=== PATIENT | male | born 1940 | race Caucasian/White ===

== ENCOUNTER → 2017-06-27 | Outpatient (CLI) | payer MEDICARE ==
[~2017-06-27] MED LIST: B-100 COMPLEX1 EAC1; CARDIZEM CD180 MG PO; CELEBREX 200 M200 M1 PO; CELEBREX50 MG; CO Q10 PO; COLACE100 MG PO; ELIQUIS2.5 MG PO; ELIQUIS5 MG PO; EXCEDRIN CAPLE1 EACH PO; FEVERALL650 MG PO; FISH OIL; FISH OIL 1,0001 EAC5 PO; FISH OIL 1,001000 M2 PO; GARLIC200 MG PO; GARLIC500 MG PO; HYDROXYZINE HCL25 M1 PO; IRON PO; IRON325 PO; LISINOPRIL2.5 MG PO; LISINOPRIL20 MG PO; MAXZIDE-25 MG1 EACH PO; METAMUCIL PAC1 UDPKT PO; METAMUCIL1 EAC1 PO; MILK OF MA2400 MG/10 PO; MILK OF MA400 MG/5 M PO; MIRALAX17 GM PO; MULTIVITAMINS PO; MULTIVITAMINS1 EAC7; NATURAL LUTEIN20 MG PO; ONDANSETRON HCL4 M2 PO; OSTEO BI-FLEX1 EAC1 PO; OXYCODONE HCL 55 MG PO; PERCOCET PO; PHENERGAN 25 MG25 M1 PO; PUMPKIN SEED OIL PO; SAW PALMETTO450 MG PO; VITAMIN D-32000 UNI1 PO; VITAMIN D400 UNI1; VITAMIN E100 M1; VITAMIN E400 UNIT PO; ZESTORETIC 10-1 EACH PO; [UNRECOGNIZED DRUG - OTHER] PO
--- NOTE | 2017-08-06 11:53 | SLEEP ---
[address] [address] SLEEP STUDY REPORT Name: VILMA LEE Room: [facility]#: [id number] Admission: 06/27/17 Attend Phys: Yousif Siddiqui MD Discharge: Date of : 36 Report #: [id number] THIS REPORT FOR: //name// CC: Tami Siddiqui This study has been reviewed in its entirety by a board certified sleep specialist DATE OF SERVICE: 06/27/2017 HOME SLEEP STUDY INDICATION FOR SLEEP STUDY: Previous history of excessive daytime sleepiness as well as obstructive sleep apnea. The patient needs redocumentation of obstructive sleep apnea for insurance reasons and needs a new CPAP machine. INTERPRETATION: Total duration of the study is 410 minutes. During this time duration, we recorded 30 obstructive apneas in addition to 73 hypopneas. Overall, apnea-hypopnea index is 15.1. Body position data indicates the patient is lying supine throughout the sleep study and also multiple desaturations recorded. Overall, the patient spent 31.4 minutes below an O2 saturation of 88%. Mean heart rate is 53. IMPRESSION: Obstructive sleep apnea with nocturnal hypoxemia. See details above. RECOMMENDATIONS: Options include either the use of a CPAP auto titrated device or doing another sleep study in the sleep lab for evaluation on positive airway pressure. Considering presence of significant nocturnal hypoxemia as well, I would favor doing a repeat sleep study in the sleep lab for positive airway pressure titration. <ELECTRONICALLY SIGNED> By: Neto Anaya MD 08/06/17 1153 1505 [id number] Reyes MD /nt
== END ==
LOC: M.SLEEPLAB 09:00
DX: G47.33 Obstructive sleep apnea (adult) (pediatric) (principal); I48.91 Unspecified atrial fibrillation; I12.9 Hypertensive chronic kidney disease with stage 1 through stage 4 chronic kidney disease, or unspecified chronic kidney disease; N18.3 Chronic kidney disease, stage 3 (moderate); E66.9 Obesity, unspecified; E78.5 Hyperlipidemia, unspecified; I71.4 Abdominal aortic aneurysm, without rupture; Z90.49 Acquired absence of other specified parts of digestive tract

== ENCOUNTER → 2018-03-11 | Outpatient (CLI) | payer MEDICARE ==
--- NOTE | 2018-04-09 16:08 | PAINCON ---
[address] [address] PAIN MANAGEMENT CONSULTATION Name: ROSAVILMA Tony Room: [facility]#: [id number] Admission: 03/11/18 Attend Phys: Washington Guthrie MD Discharge: Date of : 38 Report #: [id number] THIS REPORT FOR: //name// CC: Tami Guthrie DATE OF SERVICE: 03/11/2018 CHIEF COMPLAINT: Low back pain. HISTORY OF PRESENT ILLNESS: The patient is a 77-year-old gentleman who has been referred to the Pain Clinic for evaluation. The patient states that he is experiencing some pain in his lower back as well as some pain in his neck and shoulders. 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 Certain of these activities exacerbate his pain and discomfort. Pain is worse when he is with prolonged standing as well as somewhat limited with walking. Notes that the pain is better when he is sitting or lying down. He had a CT, which showed some narrowing in his midback area. States that if he stands for a prolonged period of time, he notes pain and discomfort across the back. He and his recount that when they go shopping, the patient generally holds on to the shopping cart. Leaning forward while shopping decrease his pain and discomfort. Standing erect exacerbates the pain. He has not had back surgery. He has also noticed some pain and discomfort in his arms bilaterally. Notes that this can occur at times. It mostly occurs at night. Also, has had knee surgery in 2015. Since that time, he has continued to have some back discomfort. Attributes that to the perception of some unevenness in his leg lengths. He has tried Celebrex and Excedrin Extra Strength. Rates his pain as a 4-5 while walking. Denies any injury to his back. ALLERGIES: No known drug allergies. MEDICATIONS: Excedrin caplets 1 q. 6 hours p.r.n., Celebrex 200 mg daily, vitamin D3 2000 units tablet supplement, diltiazem 180 mg for the heart rhythm, fish oil 1000 mg, garlic supplement 500 mg, Osteo Bi-Flex caplets b.i.d., Zestril 20 mg, Lutein 20 mg capsule, saw palmetto 450 mg t.i.d., Maxzide 25 mg daily, vitamin E 400 units daily, CoQ10 250 mg, pumpkin seed oil 1000 mg. PAST MEDICAL HISTORY: 1. Atrial fibrillation. 2. Hypertension. 3. Degenerative joint disease. 4. History of bilateral carpal tunnel. 5. History of polyposis. PAST SURGICAL HISTORY: Colon resection, right side; knee replacement, [place] [address] PAIN MANAGEMENT CONSULTATION Name: VILMA LEE Room: [facility]#: [id number] Admission: 03/11/18 Attend Phys: Washington Guthrie MD Discharge: Date of : 38 Report #: [id number] bilateral; carpal tunnel repair, bilateral. 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 LABORATORY DATA: CT of the lumbar spine dated 07/20/2016: 1. L3-L4 disk desiccation and broad-based circumferential disk bulge. Moderate facet arthrosis. Mild central canal stenosis measuring 10 mm anterior, posterior. A 5 mm ligamentum flavum hypertrophy. When combined, there is a moderate foraminal narrowing bilaterally with effacement of the L4, L3 nerve roots. L2-L3 disk desiccation and disk space narrowing. Moderate facet arthrosis. Circumferential osteophyte disk complex. Mild central canal effacement without stenosis measuring 13 mm anterior posteriorly. Mild foraminal narrowing bilaterally with effacement of the exiting L2 nerve. 2. L4-L5 disk desiccation and broad-based circumferential disk bulge at the disk bulge. A 5 mm ligamentum flavum hypertrophy and moderate facet arthrosis. Mild central canal stenosis measuring 12 mm anterior posteriorly. There is effacement of the lateral recess bilaterally. Mild/moderate foraminal narrowing bilaterally with effacement of the L4 nerve. 3. L5-S1 disk desiccation and broad-based circumferential disk bulge. Mild central canal effacement without stenosis measuring 14 mm anterior posteriorly. 4. Sensory nerve conduction/ motor conduction studies dated 07/11/2016: Study demonstrates borderline findings for neuropathy involving the left lower extremity. Findings suggestive of chronic L5-S1 radiculopathy is also present on the left side. PAIN CLINIC ASSESMENT: 1. History of osteoarthritis. The patient has had osteoarthritic changes involving his knees and has had knee replacements as well as bilateral carpal tunnel surgeries. 2. History of rheumatoid arthritis. The patient is not being treated for rheumatoid arthritis. 3. Height 6 feet 2 inches, weight 252 pounds, BMI is 31. 4. Vital signs: Blood pressure 125/92, heart rate 71, respiratory rate 16, room air saturation 94%, temperature 98.2. 5. Pain intensity 4-5 while walking. 6. Fall risk. The patient has not fallen in the last 3 months. 7. Blood thinner. The patient is not on a blood thinning medication. States that he was on a blood thinning medication in the past when he was found to [place] [address] PAIN MANAGEMENT CONSULTATION Name: VILMA LEE Room: [facility]#: [id number] Admission: 03/11/18 Attend Phys: Washington Guthrie MD Discharge: Date of : 38 Report #: [id number] 8. Hypertension. The patient is being treated for hypertension. 9. Opioid therapy greater than 6 weeks. The patient is not on opioid medication. 10. Risk assessment tool, low for opioid use. 11. Functional assessment tool. 12. Recreational drug use. The patient denies use of recreational drugs. 13. Tobacco: The patient denies smoking. 14. Alcohol: The patient denies frequent use of alcoholic beverages. PHYSICAL EXAMINATION: GENERAL: The patient is a well-developed, well-nourished 77-year-old white male, appears his stated age. He is alert and oriented x 3. Affect is appropriate. Speech is fluent. His is present. HEENT: Normocephalic, atraumatic. Extraocular eye muscles intact. Sclerae nonicteric. Mucous membranes are moist. NECK: Without JVD or bruits. CHEST: Clear to auscultation. HEART: Regular rate. S1, S2. LUNGS: Clear to auscultation without rales or rhonchi. Upper extremity muscle strength is judged to be 5/5 for the major muscle groups in the upper extremity. Pipe Fitter Ammonia strength 5/5. The patient complains of some numbness in his arms sometimes at night. No complaint of sensory changes at this time of our evaluation. ABDOMEN: Nontender. Bowel sounds present, slightly protuberant. EXTREMITIES: Lower extremity muscle strength is judged to be 5-/5. The patient uses his arms to go from a sitting to a standing position. Note some increased pain and discomfort when he is standing erect. Forward bending has less discomfort. The patient is able to walk forward on his toes as well as on his heels. Deep tendon reflexes are absent at the knees and ankles. Left and right lateral rotation cause some degree of discomfort in his low back area. Lumbar extension was particularly problematic and increased back pain. The patient has a perception that his leg lengths are different. States that when he is standing erect, more pressure is on the left knee. Feels that this changes his gait, somewhat. IMPRESSION: 1. Low back pain, which is primarily in the mid back area -- history of spinal stenosis. 2. Degenerative joint disease involving the knees. 3. History of atrial fibrillation. 4. Hypertension. RECOMMENDATIONS: We discussed treatment options with the patient. The patient is having pain and discomfort in the low back area. Gives a clinical history consistent with spinal stenosis. The patient notes increased pain and discomfort when he is standing erect. He has difficulty when [place] [address] PAIN MANAGEMENT CONSULTATION Name: ROSAVILMA Tony Room: [facility]#: [id number] Admission: 03/11/18 Attend Phys: Washington Guthrie MD Discharge: Date of : 38 Report #: [id number] Finds that if he leans forward on the cart, thinks he is able to do reasonably well. Once stopped pain and standing erect notices after a few minutes, pain and discomfort, which becomes more problematic. It improves after the patient sits down. He had a CT, which showed some spinal stenosis in the lower back. The patient and were educated regarding spinal stenosis. A model was used to indicate the area of probable pathology. Also, the patient was provided information in a video regarding low back pain and spinal stenosis. He will return to the Pain Clinic, at which time we will consider an epidural steroid injection in the L3-L4 area. This is an area that has shown to be causing some spinal stenosis symptoms. Risks and benefits of an epidural steroid injection were discussed. After the patient returns, we will then further explore/discussed expectations regarding the injection and possible complications of the procedure. We would like to thank you for letting us participate in his care. We hope he continues to improve. <ELECTRONICALLY SIGNED> By: Washington Guthrie MD 04/09/18 1608 [id number]. Conrado Guthrie MD /nt
== END ==
LOC: M.PC 05:18
DX: M54.5 Low back pain (principal); I10 Essential (primary) hypertension; M17.0 Bilateral primary osteoarthritis of knee; Z86.79 Personal history of other diseases of the circulatory system

== ENCOUNTER → 2018-04-03 | Outpatient (CLI) | payer MEDICARE ==
--- NOTE | ~2018-04-03 | PAINCON ---
[address] [address] PAIN MANAGEMENT CONSULTATION Name: ROSAVILMA R [id number] Admission: 04/03/18 Attend Phys: Washington Guthrie MD Discharge: Date of : 38 Report #: [id number] THIS REPORT FOR: //name// CC: Tami Guthrie DATE OF SERVICE: 04/15/2018 FOLLOWUP: Low back pain with pain in the neck and shoulders, cramping, aching pain in the left hip with numbness and tingling. HISTORY OF PRESENT ILLNESS: The patient is a 77-year-old gentleman who has been seen in the pain clinic. States that he has been experiencing pain in his low back as well as pain in his neck and shoulders. He has returned today. Continues to have pain and discomfort, which is quite problematic. It is radiating down the lower portion of his back into his anterior thigh area. Has noted some numbness and tingling. Notes that the pain can be problematic with prolonged standing and this limits his walking. Notes that the pain becomes more problematic across his back after prolonged standing. Oftentimes when he and his go shopping, he sits and waits for her. He has not had back surgery. He has returned today with pain and discomfort and seeks to undergo an epidural steroid injection to help control the pain in his back and anterior portion of his thigh. ALLERGIES: No known drug allergies. MEDICATIONS: Excedrin caplets 1 q. 6 hours p.r.n., Celebrex 200 mg, vitamin D3 2000 units, diltiazem 180 mg for heart rhythm, fish oil 1000 mg, garlic supplement 500 mg, Osteo Bi-Flex capsules b.i.d., Zestril 20 mg, Lutein 20 mg capsules, saw palmetto 450 mg t.i.d., Maxzide 25 mg daily, vitamin E 400 units daily, CoQ10 250 mg, pumpkin seed oil 1000 mg. PAIN CLINIC ASSESSMENT/PQRS: 1. History of osteoarthritis. The patient has had osteoarthritic changes involving his knee and has had knee replacements as well as bilateral carpal tunnel surgeries. 2. The patient is not being treated for rheumatoid arthritis. 3. Height 6 feet 3 inches, weight 248 pounds, BMI is 94. 4. Vital signs: Blood pressure 108/59, heart rate 65, respiratory rate 18, room air saturation 94%, temperature 98. 4. Pain intensity 3/10. 5. Fall History: The patient has not fallen in the last 3 months. 6. Blood thinner. The patient is not on a blood thinning medication. The patient was treated with anticoagulant when he was in atrial fibrillation. 7. Hypertension. He has been treated for hypertension. 8. Opiate therapy greater than 6 weeks. The [place] [address] PAIN MANAGEMENT CONSULTATION Name: VILMA LEE Room: [facility]#: [id number] Admission: 04/03/18 Attend Phys: Washington Guthrie MD Discharge: Date of : 38 Report #: [id number] medication. 9. Risk assessment tool for opioid use. 10. Functional assessment tool. 11. Recreational drug use. The patient denies use of recreational drugs. 12. Tobacco: The patient denies use of smoking. 13. Alcohol: The patient denies frequent use of alcoholic beverages. PHYSICAL EXAMINATION: GENERAL: The patient is a well-developed, well-nourished 77-year-old male. Appears his stated age. He is alert and oriented x 3. His affect is appropriate. Speech is fluent. His is present. HEENT: Normocephalic, atraumatic. Extraocular eye muscles intact. Sclerae nonicteric. Mucous membranes are moist. NECK: Without adenopathy or JVD. CHEST: Clear to auscultation. HEART: Regular rate. LUNGS: Clear, without rhonchi or rales. EXTREMITIES: Upper extremity muscle strength is judged to be 5/5 for the major muscle groups in the upper extremity. Land Examiner strength 5/5. The patient has some numbness in his arms which he perceives at night. No complaints of sensory changes at this juncture. ABDOMEN: Nontender. Bowel sounds present, slightly protuberant. The patient complains of pain and discomfort, which is radiating down into the L3-L4 distribution in his legs. IMPRESSION: 1. Low back pain with pain radiating down into the L3-L4 lumbar disk fusion with history of spinal stenosis. 2. Degenerative joint disease involving the knees. 3. Atrial fibrillation. 4. Hypertension. The patient has evidence of spinal stenosis at the L3-L4 level. He has returned to the pain clinic and will undergo an epidural steroid injection. Because of the spinal stenosis, the patient has elected to proceed. Risks and benefits of the procedure, which could include but are not limited to infection, increased muscle soreness, headache, bleeding, worsening of pain, no improvement in pain, paralysis. The patient elects to proceed. PROCEDURE NOTE: The patient was taken to the procedure area. He was assisted in getting on the examination table. He was placed in the prone position. His back was sterilely prepped with a Betadine solution. A pillow was placed under his abdomen to bolster improved positioning. Fluoroscopy using anterior, posterior as well as lateral viewing were implemented. His back at the L3-L4 interspace was sterilely prepped with a Betadine solution. A 25-gauge needle was then injected into this area and 0.25% bupivacaine was infiltrated. A 17-gauge Tuohy with loss of resistance technique was then used to gain access to the epidural space at L3-L4. A total of 80 mg Depo-Medrol, 40 [place] [address] PAIN MANAGEMENT CONSULTATION Name: VILMA LEE Room: [facility]#: [id number] Admission: 04/03/18 Attend Phys: Washington Guthrie MD Discharge: Date of : 38 Report #: [id number] and 2 mL of 0.25% bupivacaine was injected. The patient tolerated the procedure well. There were no complications. He remained in the pain clinic for an appropriate amount of time. He will follow up in the future as needed. We would like to thank you for letting us participate in his care. We hope he continues to improve. By: [id number]. Conrado Guthrie MD /antony
== END | disposition home or self-care (01) ==
LOC: M.PC 05:10
DX: M48.061 Spinal stenosis, lumbar region without neurogenic claudication (principal); M54.16 Radiculopathy, lumbar region; M17.0 Bilateral primary osteoarthritis of knee; I10 Essential (primary) hypertension; I48.91 Unspecified atrial fibrillation; Z79.899 Other long term (current) drug therapy; Z79.01 Long term (current) use of anticoagulants; Z98.890 Other specified postprocedural states; Z96.653 Presence of artificial knee joint, bilateral

== ENCOUNTER → 2018-05-01 | Outpatient (CLI) | payer MEDICARE ==
--- NOTE | 2018-05-02 17:20 | PAINCON ---
[address] [address] PAIN MANAGEMENT CONSULTATION Name: ROSAVILMA Tony Room: [facility].#: [id number] Admission: 05/01/18 Attend Phys: Washington Guthrie MD Discharge: Date of : 38 Report #: [id number] THIS REPORT FOR: //name// CC: Tami Guthrie DATE OF SERVICE: 05/01/2018 FOLLOWUP COMPLAINT: I think I have got some benefit from, the pain is still there when I stand for a long time. FOLLOWUP HISTORY: The patient is a 77-year-old gentleman who has been seen in the pain clinic because of pain associated with spinal stenosis. The patient underwent an epidural steroid injection at the last visit and noted some improvement in his pain. Overall, it still continues to be problematic and limits his ability to engage in activities. He would like to proceed. 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 States that when he is out working, when he stands up erect notes significant increase in pain and discomfort. If he sits or bends over, pain improves. He has noted worsening of pain when he is walking. When he goes to the store, he leans forward on the cart with his . Had no problems with the epidural steroid injection at the last visit. Continues to find that Excedrin and Celebrex can be helpful. He has had no problems with the GI upset associated with this. 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 Bending over caused some worsening of pain and the pain is in the middle portion of his back and radiates down to the area of the buttocks. Notes some discomfort in his neck and shoulder area as well. ALLERGIES: No known drug allergies. MEDICATIONS: Excedrin caplets 1 q.6 hours, Celebrex 200 mg, vitamin D3 2000 units, diltiazem 180 mg for heart rhythm, fish oil 1000 mg, garlic supplement 500 mg, Osteo Bi-Flex capsules b.i.d., Zestril 20 mg, lutein 20 mg capsules, Saw [place] 400 mg t.i.d., Maxzide 25 mg, vitamin E 400 mg, CoQ10 250 mg, and pumpkin seed oil 1000 mg. PAIN CLINIC ASSESSMENT/ PQRS: 1. History of osteoarthritis. The patient has some osteoarthritic changes involving his knee and has had a knee replacement as well as bilateral carpal tunnel surgeries. 2. The patient is not being treated for rheumatoid arthritis. 3. Height 6 feet 3 inches, weight is 245 pounds, BMI is 30. 4. Vital signs: Blood pressure 120/56, heart rate 64, respiratory rate 18, room air saturation 95%, temperature 97.9. 5. Pain intensity 3/10. [place] [address] PAIN MANAGEMENT CONSULTATION Name: VILMA LEE Room: [facility]#: [id number] Admission: 05/01/18 Attend Phys: Washington Guthrie MD Discharge: Date of : 38 Report #: [id number] 6. Fall risk. The patient has not fallen in the last 3 months. 7. Blood thinner. The patient is not on a blood thinning medication. 8. Hypertension. The patient is being treated for hypertension. 9. Opioid greater than 6 weeks. The patient is not on an opioid regimen. 10. Risk assessment tool, low for opioid use. 11. Functional assessment tool. 12. Recreational drug use. The patient denies use of recreational drugs. 13. Tobacco: The patient denies use of tobacco. 14. Alcohol: The patient denies use of alcoholic beverages. PHYSICAL EXAMINATION: GENERAL: The patient is a well-developed, well-nourished white male. He appears his stated age of [age] years old. He is alert and oriented x 3. Affect is appropriate. Speech is fluent. He is alone. HEENT: Normocephalic, atraumatic. Extraocular, eye muscles intact. Sclerae nonicteric. Mucous membranes are moist. NECK: Without adenopathy or JVD. CHEST: Clear to auscultation. HEART: Regular rate. LUNGS: Without rhonchi or rales. EXTREMITIES: Upper extremity muscle strength is judged to be 5-/5 for the major muscle groups in the upper extremity. Warp Changer strength is 5. The patient has some numbness in his arms, which is more problematic at night. ABDOMEN: Nontender. Bowel sounds present, slightly protuberant. The patient has pain and discomfort in the lower portion of his back, which increases when he stands erect. Radiates down into the buttocks area and radiate into the area of the L3-L4 interspace. IMPRESSION: 1. Low back pain with radiation down into the L4-L5 distribution. 2. History of spinal stenosis. 3. Degenerative joint disease involving the knees. 4. Atrial fibrillation. 5. Hypertension. 6. Evidence of spinal stenosis at L3-L4. RECOMMENDATIONS: We discussed treatment options with the patient. Risks and benefits of an epidural steroid injection were discussed. They include but are not limited to infection, increased muscle soreness, headache, bleeding, worsening of pain, no improvement in pain, and the patient elects to proceed. PROCEDURE NOTE: The patient was assisted in getting on the examination table. His back was sterilely prepped with a Betadine solution. Fluoroscopy using anterior, posterior as well as lateral viewing were implemented. Pillow had been placed under his abdomen to improve and bolster for better positioning. The patient's back was sterilely prepped with a Betadine solution. A 0.25% [place] [address] PAIN MANAGEMENT CONSULTATION Name: ROSAVILMA R Room: [facility]#: [id number] Admission: 05/01/18 Attend Phys: Washington Guthrie MD Discharge: Date of : 38 Report #: [id number] bupivacaine was infiltrated at the L4-L5 interspace. A 17-gauge Tuohy with loss of resistance technique was used to gain access to the epidural space. A midline approach was used, a 17-gauge Tuohy was then moved into the epidural space. After appropriate placement, aspiration was negative. A total of 40 mg triamcinolone, 80 mg Depo-Medrol, and 2 mL of 0.25% bupivacaine was infiltrated. A total of 14 seconds fluoroscopy time was used. The patient remained in the pain clinic for an appropriate amount of time. He will follow up in the future as needed. We would like to thank you for letting us participate in his care. We hope he continues to improve. <ELECTRONICALLY SIGNED> By: Washington Guthrie MD 05/02/18 1720 [id number]. MD YULIA Lyon
== END | disposition home or self-care (01) ==
LOC: M.PC 04-24 12:40
DX: M54.16 Radiculopathy, lumbar region (principal); M48.061 Spinal stenosis, lumbar region without neurogenic claudication; G89.29 Other chronic pain; M17.0 Bilateral primary osteoarthritis of knee; I10 Essential (primary) hypertension; I48.91 Unspecified atrial fibrillation; Z79.01 Long term (current) use of anticoagulants; Z79.899 Other long term (current) drug therapy; Z98.890 Other specified postprocedural states

== ENCOUNTER 2018-05-31 09:56 | Inpatient (IN) | payer MEDICARE ==
[~2018-05-31] VITALS: Ht 190.5 cm; Wt 109.3 kg
--- NOTE | ~2018-05-31 | EKG ---
[place] [address] ELECTROCARDIOGRAM REPORT Name: VILMA LEE Room: [address] ADM IN M.R.#: [id number] Admission: 05/31/18 Attend Phys: Laura Morrow MD Discharge: Date of : 36 Report #: [id number] THIS REPORT FOR: //name// [facility] Test Date: 2018-06-02 Test Time: 05:48:04 Pat Name: VILMA LEE Department: Room: [address] Gender: M Esl Instructor: [facility] : 1940 Requested By: Norman Ortiz Order Number: [id number] Reading MD: Measurements Intervals [place] Rate: 109 P: 108 [place]: 128 QRS: -19 QRSD: 90 T: 127 QT: 321 QTc: 433 Interpretive Statements Sinus tachycardia Ventricular premature complex Borderline left axis deviation Anterior infarct, old Nonspecific T abnormalities, lateral leads Baseline wander in lead(s) V3 Compared to ECG 06/01/2018 08:55:08 Atrial flutter no longer present Possible ischemia no longer present Myocardial infarct finding still present T-wave abnormality still present [email or web address] By: 0548 0548 Epiphany Epiphany, /BAKARI
--- NOTE | ~2018-05-31 | EKG ---
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: [facility] : 1940 Requested By: Norman Ortiz Order Number: [id number] Reading MD: Measurements Intervals [place] Rate: 109 P: 108 [place]: 128 QRS: -19 QRSD: 90 T: 127 QT: 321 QTc: 433 Interpretive Statements Sinus tachycardia Ventricular premature complex Borderline left axis deviation Anterior infarct, old Nonspecific T abnormalities, lateral leads Baseline wander in lead(s) V3 Compared to ECG 06/01/2018 08:55:08 Atrial flutter no longer present Possible ischemia no longer present Myocardial infarct finding still present T-wave abnormality still present [email or web address] By: 0548 0548 Epiphany Epiphany, /BAKARI
[2018-05-31 10:00] VITALS: BP 133/79
[2018-05-31] MEDS ORDERED: CARTIA XT180 M1 PO (10:07)
[2018-05-31 10:17] LABS: ABSOLUTE EOSINOPHILS 0.3 thou/uL (0.0-0.7); ABSOLUTE MONOCYTES 0.8 thou/uL (0.0-1.2); BASOPHILS 0.4 %; EOSINOPHILS 2.6 %; HEMATOCRIT 36.7 % (42.0-52.0); HEMOGLOBIN 12.4 gm/dL (14.0-18.0); MCH 31.4 pg (26.0-34.0); MCHC 33.7 g/dL (28.0-37.0); MONOCYTES 6.9 %; MPV 7.5 fl. (7.2-11.1); NUCLEATED RBCS 0 /100WBC; PLATELET COUNT* 268 thou/uL (150-400); POLYS 41.1 %; RBC 3.95 mil/uL (4.50-6.00); RDW-CV 13.3 % (10.5-14.5); WBC 12.2 thou/uL (4.0-11.0)
[2018-05-31 10:27] LABS: APTT 28.2 Seconds (25.0-31.3); CALCIUM 8.9 mg/dL (8.5-10.1); CREATININE 1.5 mg/dL (0.6-1.3); POTASSIUM 3.8 mmol/L (3.5-5.1); PROTIME 9.8 Seconds (9.20-11.50)
[2018-05-31 10:38] LABS: ALBUMIN 3.3 g/dL (3.4-5.0); MAGNESIUM 2.2 mg/dL (1.8-2.4); TOTAL BILIRUBIN 0.4 mg/dL (<0.1-1.0); TOTAL PROTEIN 6.7 g/dL (6.4-8.2); TROPONIN-I LEVEL 0.11 ng/mL (<0.06)
[2018-05-31 14:53] VITALS: BP 120/74
--- NOTE | 2018-05-31 15:37 | NUR ---
pt to room, from ER, appears alert o x 4, denies chest pain, SOB, pain or discmfort, A-FIB on minitor rate 80s-110s, on cardizem gtt mg per hour
[2018-05-31 16:00] VITALS: BP 109/65
--- NOTE | 2018-05-31 17:25 | NUR ---
PT RESTING IN BED, WITHOUT C/O , REMAINS ALERT O X 4, DENIES CHEST PAIN, SOB, C/O CHRONIC BACK PAIN, HX OF SPINAL STENOSIS, IS FOLLOWED BY PAIN CLINIC OUTPATIENT, A-FIB ON MONITOR , RATE 80S-110S, CARDIZEM GTT HAS BEEN D/C , SWITCHED TO PO CARDIZEM, SOLTALOL HAS BEEN ADDED, PIV R AC
--- NOTE | 2018-05-31 19:00 | NUR ---
cardizem gtt was d/dc earlier. sotalol was gievn as ordered. Held po ditiazem precuationary to see how tolerated soltalol. at aprox 1815, HR mid 50s , a-fib. bp 95/55, cardizem po held
--- NOTE | 2018-05-31 19:02 | NUR ---
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 responed to room. pt states had felt light headed earlier, just prior to coming in roon. HR remain low 50s , pt place din supine postion, states lightheaded resolved . bp 90s/50s
[2018-05-31 19:50] VITALS: BP 95/46
[2018-05-31 23:33] VITALS: BP 93/59
[2018-06-01] VITALS (7 sets, daily range): BP systolic 90–107; BP diastolic 47–74
--- NOTE | 2018-06-01 07:05 | NUR ---
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 BP 90s-100s/50s-60s. Up to BR ad elham. Reports he got some sleep overnight. Will continue to monitor.
[2018-06-01 07:53] LABS: CHOLESTEROL 198 mg/dL (<200); HDL CHOLESTEROL 43 mg/dL (>40); LDL CHOLESTEROL 127 mg/dL (<100); TC:HDL 4.6 Ratio (Not establshd); TRIGLYCERIDE 142 mg/dL (<150); VLDL 28 mg/dL (<40)
[2018-06-01 07:54] LABS: SERUM ASSESSMENT Clear
--- NOTE | 2018-06-01 08:33 | NUR ---
PT RESTING IN BED, APPEARS ALERT O X 4, DENIES CHEST PAIN, SOB, PAIN OR DISCOMFORT, DR ROME HERE TO SEE, PLAN ON CARDIOVERSION IN AM
--- NOTE | 2018-06-01 10:03 | EKG ---
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 Operator: [place] : 1940 Requested By: Jim Collins Order Number: [id number] MD: Norman Ortiz Measurements Intervals [place] Rate: 126 P: [place]: QRS: -38 QRSD: 88 T: 131 QT: 299 QTc: 433 Interpretive Statements Atrial flutter with varied AV block, Left axis deviation Anterior infarct, old Repol abnrm suggests ischemia, lateral leads Compared to ECG 06/09/2013 22:26:07 Sinus rhythm no longer present Left ventricular hypertrophy no longer present Myocardial infarct finding still present Electronically Signed On 06-01-2018 10:03:12 ANIMAL MAINTENANCE SUPERVISOR by Norman Ortiz [email or web address] <ELECTRONICALLY SIGNED> By: Norman Ortiz MD, FAC 06/01/18 1003 1003 1003 Norman Ortiz MD, FAC /EPI
--- NOTE | 2018-06-01 10:20 | EKG ---
[place] [address] ELECTROCARDIOGRAM REPORT Name: VILMA LEE Room: [address] ADM IN .R.#: [id number] Admission: 05/31/18 Attend Phys: Laura Morrow MD Discharge: Date of : 38 Report #: [id number] THIS REPORT FOR: //name// 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 Safety Manager: : 1940 Requested By: Norman Ortiz Order Number: [id number] Jemma MD: Norman Ortiz Measurements Intervals [place] Rate: 110 P: 177 [place]: 138 QRS: -24 QRSD: 91 T: 129 QT: 335 QTc: 454 Interpretive Statements atrial flutter Ventricular premature complex Borderline left axis deviation Anterior infarct, old Abnormal T, consider ischemia, lateral leads Electronically Signed On 06-01-2018 10:20:08 SEASONAL DELIVERY DRIVER by Norman Ortiz [email or web address] <ELECTRONICALLY SIGNED> By: Norman Ortiz MD, [facility] 06/01/18 1020 Norman Ortiz MD, FAC /EPI
--- NOTE | 2018-06-01 19:00 | NUR ---
PT RESTING IN BED , REMAIS ALERT O X 4, DENIES CHEST PAIN, SOB, PAIN OR DISCOMFORT. CONT IN A-FIB ON MONOTOR M, CURRENT RATE 80WS-100S, GIVEN SOTALOL THIS AM, PT HAD RANJIT RYHTHM LOW 50S MOST OF AM. HAS SCHEDULED CARDIZED Q 8, 1400 DOSE WAS HELD SECONARY TO LOW BP, AND BRADYCARDIA, PER CARDIOLOGY PARAMETES. PT IS TO BE NPO AT MIDNIGHT FOR MACARIO WITH CARDIOVERSION IN AM, CONSENT SIGNED AND IN CHART
[2018-06-02] VITALS (19 sets, daily range): BP systolic 92–126; BP diastolic 47–92
--- NOTE | 2018-06-02 04:53 | NUR ---
ASSUMED PT CARE AT 1930. NURSING ASSESSMENT COMPLETED AT START OF SHIFT. PT VOICED NO CONCERNS. DILTIAZEM HELD THIS SHIFT PER PARAMETERS. SEE EMAR FOR DOCUMENTATION. PT TOLERATED SOTALOL DOSE. CONTINUES TO TRACE AFIB WITH OCCASIONAL PVCS. PT NPO AFTER MIDNIGHT FOR CARDIOVERSION. HOURLY ROUNDING COMPLETED. CALL LIGHT WITHIN REACH.
[2018-06-02 06:18] LABS: CALCIUM 8.5 mg/dL (8.5-10.1); CREATININE 1.7 mg/dL (0.6-1.3); POTASSIUM 4.3 mmol/L (3.5-5.1)
--- NOTE | 2018-06-02 12:00 | NUR ---
ASSUMED PT CARE AT 0730 REPORT RECEIVED FROM NURSE. PT IS AOX4 STACHY ON THE AGRONOMY MANAGER. HR IN THE 110S. VSS. PT IS MAINTAINED ON NPO STATUS FOR MACARIO AND POSSIBLE CARDIOVERSION TODAT. TEST SCHEDULED TO BE DONE AT 1200. PT AWAITNG FOR SUBJECT SCIENTIFIC RESEARCH IN BED. WILL CONTINUE TO MONITOR.
--- NOTE | 2018-06-02 14:35 | NUR ---
PT BACK FROM ATH LAB AT 1425 ACCOMPANIED BY TRANSPORTERS ON WHEELCHAIR. SR ON MONITOR, VSS .BP 116/53, O2 SATURATION 95% ON RA
--- NOTE | 2018-06-02 16:09 | NUR ---
Pt is A&O. Resides at home with his . Independent with ADLs. Pt uses a cane for mobility. Hx of [facility]. No hx of SNF. Goal is home at nh. Following.
--- NOTE | 2018-06-02 16:44 | CON ---
[address] [address] CONSULTATION Name: ROSAVILMA Tony Room: [address] IN M.R.#: [id number] Admission: 05/31/18 Attend Phys: Laura Morrow MD Discharge: Date of : 38 Report #: [id number] THIS REPORT FOR: //name// CC: Tami Ochoa [facility] Laura Peralta DATE OF SERVICE: 05/31/2018 TYPE OF REPORT: Cardiology consultation. HISTORY OF PRESENT ILLNESS: The patient is a 77-year-old white male who came to the Emergency Room today and was found to be in atrial fibrillation. The patient has had several hospitalizations here at [facility]. He was admitted here in 2011 with a partial small-bowel obstruction. He presented here in 2013 with palpitations. He was found to be in atrial fibrillation. He was seen in consultation by Dr. Reyes. He converted to sinus rhythm. He was placed on Eliquis and diltiazem. He has been followed by my partner, Dr. Peralta since that time. The patient does have a history of chronic back pain. He has had multiple visits to the pain clinic. The patient states he was doing well until yesterday and has felt his heart beating irregular. Denied lightheadedness, shortness of breath or chest pain. He has had no recent fever. He came to the hospital today, was noted to be in AFib. He was started on IV diltiazem. I was asked to see her for further evaluation and treatment. He denies a history of myocardial infarction or chest pain. He actually had a nuclear stress test in 2013 here at [facility] that showed no evidence of ischemia. Echocardiogram at that time showed an ejection fraction of 60%. The patient stays active. Denies any significant shortness of breath, syncope or edema. PAST MEDICAL HISTORY: He has had knee surgery, carpal tunnel surgery and colon polyp removed in the past. He has sleep apnea, hypertension and hyperlipidemia. CURRENT MEDICATIONS: Consists of Cardizem-CD 180 mg a day, lisinopril 20 mg a day, Dyazide and aspirin. He states he no longer takes Eliquis because of easy bruising. ALLERGIES: He has no known drug allergies. FAMILY HISTORY: His mother had heart disease. 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 No smoking or alcohol abuse. REVIEW OF SYSTEMS: He has had no history of stroke, asthma, [place] [address] CONSULTATION Name: VILMA LEE Room: [address] IN [facility]#: [id number] Admission: 05/31/18 Attend Phys: Laura Morrow MD Discharge: Date of : 38 Report #: [id number] disease, liver disease or kidney disease. He has arthritis. No chronic skin condition. No psychiatric illness. PHYSICAL EXAMINATION: GENERAL: Revealed an elderly male, lying in bed, appeared in no acute distress. VITAL SIGNS: He had a blood pressure of 120/80, pulse is 120 and he is afebrile. HEENT: He is anicteric. Conjunctivae pink. Mucous membranes moist. NECK: Veins do not appear distended. No carotid bruits. Neck supple. CHEST: Clear to auscultation. CARDIOVASCULAR: Irregular rhythm. ABDOMEN: Soft. EXTREMITIES: Had trace edema. Dorsalis pedis pulse 1+ bilaterally. SKIN: Warm and dry. NEUROLOGICAL: Nonfocal. LYMPHATIC: No adenopathy. MUSCULOSKELETAL: No joint effusions. RADIOLOGICAL DATA: His ECG on admission showed atrial fibrillation, left axis, septal Q-waves. LABORATORY DATA: He had lab work: BUN 21 and creatinine 1.5. Liver function studies were normal. His GFR is 45. His troponin 0.11. BNP 3677. White blood cell count 12.2 and hemoglobin 12.4. IMPRESSION AND RECOMMENDATIONS: 1. Atrial fibrillation. I would recommend resuming Eliquis. Recommend transesophageal echocardiogram and cardioversion. I would then consider starting antiarrhythmic therapy. 2. Hypertension. The patient is on a calcium clair and angiotensin-converting enzyme inhibitor and diuretic. 3. Sleep apnea. The patient does not use a continuous positive airway pressure. 4. Previous colon resection for diverticular disease. 5. Chronic back pain, history of spinal stenosis. <ELECTRONICALLY SIGNED> By: Norman Ortiz MD, [facility] 06/02/18 1644 1354 0300Damary Ortiz MD, FAC /nt
--- NOTE | 2018-06-02 17:04 | TEE ---
[place] [address] TRANSESOPHAGEAL ECHOCARDIOGRAM Name: VILMA LEE Tony Room: [address] IN .R.#: [id number] Admission: 05/31/18 Attend Phys: Laura Morrow, Discharge: Date of : 36 Date of Service: 06/02/18 1703 Report #: [id number] THIS REPORT FOR: //name// APPROVED REPORT Study performed: 06/02/2018 12:57:12 EXAM: Transesophageal Echocardiogram Patient Location: CVL BSA: 2.37 HR: 94 bpm BP: 116/81 mmHg Other Information Study Quality: Good Indications Atrial Fibrillation Echo Enhancing Agent Indication: Rule out Shunt Agent(s) / Amount(s) Used: Agitated Saline cc Procedure After obtaining informed consent, patient underwent transesophageal echo in the [employer]. Type of Sedation : Conscious Sedation Sedation was administered by Fabiola Darling RN. Sedation was achieved intravenously with: Versed (3) Fentanyl (75) Transesophageal probe was inserted and advanced into esophagus without difficulty by Jaxson Peralta MD, [facility]. Echo enhancement indication: R/O Septal defect. Echo enhancement agent administered: Agitated Saline The MACARIO was performed without complications. Throughout the procedure, the blood pressure, pulse oximetry, cardiac rhythm, and rate were monitored. The patient tolerated the procedure without adverse effects. Recovery from conscious sedation was uneventful and vital signs were stable. Left Ventricle The left ventricle is normal size. There is normal left ventricular wall thickness. LVEF is 55-60%. [address] [address] TRANSESOPHAGEAL ECHOCARDIOGRAM Name: ROSAVILMA Tony Room: [address] IN [facility]#: [id number] Admission: 05/31/18 Attend Phys: Laura Morrow, Discharge: Date of : 36 Date of Service: 06/02/18 1703 Report #: [id number] [place] No thrombus is visualized in the left atrium or appendage. Injection of bubbles documented no interatrial shunt. Aortic Valve The aortic valve is normal in structure. Trace aortic regurgitation. There is no aortic valvular stenosis. Mitral Valve The mitral valve is normal in structure. Mild mitral regurgitation. No evidence of mitral valve stenosis. Tricuspid Valve The tricuspid valve is normal in structure. There is no tricuspid valve regurgitation noted. Pulmonic Valve The pulmonary valve is normal in structure. There is no pulmonic valvular regurgitation. Great Vessels The aortic root is normal in size. <Conclusion> The left ventricle is normal size. There is normal left ventricular wall thickness. LVEF is 55-60%. Injection of bubbles documented no interatrial shunt. The aortic valve is normal in structure. The mitral valve is normal in structure. The tricuspid valve is normal in structure. The aortic root is normal in size. Trace aortic regurgitation. Mild mitral regurgitation. No thrombus is visualized in the left atrium or appendage. <ELECTRONICALLY SIGNED> By: Jaxson Peralta MD, FACC 06/02/181702 02 02 Jaxson Peralta MD, FACC /INF
[2018-06-02] MEDS ORDERED: ELIQUIS5 MG PO (18:34)
[2018-06-02] MEDS ORDERED: SORINE 80 MG TA80 M1 PO (18:35)
--- NOTE | 2018-06-02 18:53 | NUR ---
DR ROJO OK TO DC PT. BUT HOSPITALIST NOT AWARE YET. PAGE SENT TO [facility] DOCTOR FOR THIS TIME. NO CALL BACK FOR NOW. NURSE WORKED ON DISCHARGE PAPERS. AND WILL GIVE REPORT TO HIM SPECIALIST NURSE WO WILL BE WAITING FOR HOSPITALIST TO GIVE OK TO DC PATIENT. PT IN ROOM .REASDY TO GO.
[2018-06-03 04:02] VITALS: BP 102/48
--- NOTE | 2018-06-03 05:36 | NUR ---
ASSUMED PATIENT CARE AT 1930. NURSING ASSESSMENT COMPLETED AT START OF SHIFT. PT VOICED NO CONCERNS. MILDLY ANXIOUS REGARDING NOT BEING ABLE TO DISCHARGE HOME DURING DAY SHIFT. PT TRACING SINUS RHYTHM/SINUS BRADYCARDIA IN LOW 50'S THIS SHIFT. DENIES PAIN, HOURLY ROUNDING COMPLETED, CALL LIGHT WITHIN REACH.
[2018-06-03 08:00] VITALS: BP 114/38
[2018-06-03 09:13] VITALS: BP 92/65
== END 2018-06-03 08:30 | disposition home or self-care (01) | DRG 291 ==
LOC: M.ERS 09:56 → M.TBA-ER 11:07 → M.2W 11:07
PROVIDERS: Emergency Medicine Emergency Medical Services; Internal Medicine Cardiovascular Disease; ADMIT Internal Medicine
PROC: 5A2204Z Restoration of Cardiac Rhythm, Single (ICD-10-PCS; principal; 2018-06-02)
PROC: B24BZZ4 Ultrasonography of Heart with Aorta, Transesophageal (ICD-10-PCS; principal; 2018-06-02)
DX: I13.0 Hypertensive heart and chronic kidney disease with heart failure and stage 1 through stage 4 chronic kidney disease, or unspecified chronic kidney disease (principal); R65.11 Systemic inflammatory response syndrome (SIRS) of non-infectious origin with acute organ dysfunction; I50.33 Acute on chronic diastolic (congestive) heart failure; N17.9 Acute kidney failure, unspecified; I48.91 Unspecified atrial fibrillation; M19.90 Unspecified osteoarthritis, unspecified site; E78.5 Hyperlipidemia, unspecified; G89.29 Other chronic pain; M54.9 Dorsalgia, unspecified; N18.3 Chronic kidney disease, stage 3 (moderate); G47.33 Obstructive sleep apnea (adult) (pediatric); Z96.651 Presence of right artificial knee joint; Z79.82 Long term (current) use of aspirin; Z79.899 Other long term (current) drug therapy; Z82.49 Family history of ischemic heart disease and other diseases of the circulatory system

== ENCOUNTER → 2018-06-17 | Outpatient (CLI) | payer MEDICARE ==
[~2018-06-17] MED LIST changes: +CARTIA XT180 M1 PO; +SORINE 80 MG TA80 M1 PO
--- NOTE | ~2018-06-17 | PAINCON ---
[address] [address] PAIN MANAGEMENT CONSULTATION Name: VILMA LEE Tony [id number] Admission: 06/17/18 Attend Phys: Washington Guthrie MD Discharge: Date of : 38 Report #: [id number] THIS REPORT FOR: //name// CC: Tami Guthrie DATE OF SERVICE: 06/17/2018 CHIEF COMPLAINT: Here for another injection. I am still having pain in the upper, middle portion of back. FOLLOWUP HISTORY: The patient is an 78-year-old gentleman who has been followed in the Pain Clinic. He has a history of spinal stenosis. The patient has undergone 2 epidural steroid injections. Continues to find that the pain is still problematic. He is very active. 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 He has cancer, had a recurrence with brain mets. He has returned today for an epidural steroid injection. I feel that the pain is more in the mid lumbar area rather than the lower area at this point. He has had no problems associated with use of his medications. Overall, he feels that things are going reasonably well from medication point of view, continues with Celebrex. The patient also is now taking any blood thinner. ALLERGIES: No known drug allergies. CURRENT MEDICATIONS: Excedrin caplets every 6 hours, Celebrex 200 mg, vitamin D3 2000 units, diltiazem 180 mg for heart rhythm, fish oil, garlic supplementation 500 mg, Osteo Bi-Flex capsules b.i.d., Zestril 20 mg, Lutein 20 mg, saw palmetto 400 mg t.i.d., Maxzide 25 mg, vitamin E 400 mg, CoQ10 250 mg, pumpkin seed oil, Eliquis. PAIN CLINIC ASSESSMENT/PQRS: 1. History of osteoarthritis. The patient has some osteoarthritic changes involving his knees and has had a knee replacement with bilateral carpal tunnel surgeries. The patient has not been treated for rheumatoid arthritis. 2. Height 6 feet 3 inches, weight 247 pounds, BMI is 31. 3. Vital signs, blood pressure 118/52, heart rate 60, respiratory rate 16, room air saturation 97%. Temperature 97.9. 4. Pain intensity 2-3/10. 5. Fall history: The patient has not fallen in the last 3 months. 6. Blood thinner. The patient is on Eliquis, has stopped taking his medication to undergo the procedure. 7. Hypertension. The patient is being treated for hypertension. 8. Opioid greater than 6 weeks. The patient is on an opioid regimen. 9. Risk assessment tool, low for opioid use. 10. [place] [address] PAIN MANAGEMENT CONSULTATION Name: VILMA LEE Room: [facility]#: [id number] Admission: 06/17/18 Attend Phys: Washington Guthrie MD Discharge: Date of : 38 Report #: [id number] 11. Recreational drug use. The patient denies use of recreational drugs. 12. Tobacco: The patient denies use of tobacco. 13. Alcohol: The patient denies use of alcoholic beverages. PHYSICAL EXAMINATION: GENERAL: The patient is a well-developed, well-nourished white male. Appears his stated age of [age] years old. He is alert and oriented x3. His affect is appropriate. Speech is fluent. HEAD, EYES, EARS, NOSE, AND THROAT: Normocephalic, atraumatic. Extraocular eye muscles intact. The patient wears glasses. Sclerae nonicteric. Mucous membranes are moist. NECK: Without adenopathy or JVD. CHEST: Clear to auscultation. HEART: Regular rate. ABDOMEN: Without rhonchi or rales. EXTREMITIES: Upper extremity muscle strength is judged to be 5-/5 for the major muscle groups of the upper extremity. Environmental Technician strength is 5/5. ABDOMEN: Nontender, but Protuberant. Bowel sounds present. The patient walks with a somewhat antalgic gait with a rocking motion left or right. Complains of pain and discomfort down in the mid portion of his back at about the L1-L2. IMPRESSION: 1. Low back pain with radiation of pain down the L4-L5 distribution. 2. History of spinal stenosis. 3. Degenerative joint disease involving the knees. 4. Atrial fibrillation. 5. Hypertension. 6. Evidence of spinal stenosis at L3-L4. RECOMMENDATIONS: We discussed treatment options with the patient. The patient states that the last 2 injections have been helpful. He feels that the pain is higher at this juncture. He walks often area about L1-L2. Because of this pain and discomfort, he would like to pursue an injection at this level been that this is the area near his ribs that are most problematic. PROCEDURE NOTE: The patient was taken to the procedure area. He was assisted in going to the examination table. He was placed in the prone position. Fluoroscopy using anterior, posterior as well as lateral viewing were implemented. The patient's back was sterilely prepped. At the L1-L2 area, 0.25% bupivacaine was infiltrated. A 17-gauge Tuohy with loss of resistance technique was used to gain access to the epidural space. There was no CSF, heme or paresthesia. Total of 80 mg Depo-Medrol, 40 mg triamcinolone and 2 mL of 0.25% bupivacaine was injected. The patient tolerated the procedure well. There were no complications. Remained in the pain clinic for an appropriate amount of time. Follow [place] [address] PAIN MANAGEMENT CONSULTATION Name: VILMA LEE Room: [facility]#: [id number] Admission: 06/17/18 Attend Phys: Washington Guthrie MD Discharge: Date of : 38 Report #: [id number] We would like to thank you for letting us to participate in his care. We hope he continues to improve By: 0933 1101N. Conrado Guthrie MD /SANTANA
== END | disposition home or self-care (01) ==
LOC: M.PC 04:14
DX: M54.16 Radiculopathy, lumbar region (principal); G89.29 Other chronic pain; M48.061 Spinal stenosis, lumbar region without neurogenic claudication; I10 Essential (primary) hypertension; I48.91 Unspecified atrial fibrillation; M17.0 Bilateral primary osteoarthritis of knee; Z79.899 Other long term (current) drug therapy; Z79.891 Long term (current) use of opiate analgesic; Z98.890 Other specified postprocedural states; Z96.653 Presence of artificial knee joint, bilateral; Z79.01 Long term (current) use of anticoagulants

== ENCOUNTER → 2018-10-09 | Outpatient (CLI) | payer MEDICARE ==
--- NOTE | ~2018-10-09 | PAINCON ---
[address] [address] PAIN MANAGEMENT CONSULTATION Name: ROSAVILMA Tony [facility] [id number] Admission: 10/09/18 Attend Phys: Washington Guthrie MD Discharge: Date of : 38 Report #: [id number] THIS REPORT FOR: //name// CC: Tami Guthrie DATE OF SERVICE: 10/09/2018 FOLLOWUP COMPLAINT: Here for an epidural steroid injection. The patient is an 78-year-old gentleman who has been followed in the pain clinic. As you may recall, he has spinal stenosis. He has a narrowing of 10 mm at the 3-4 interspace. He has undergone epidural steroid injections in the past to help with his spinal stenosis symptoms. Notes that if he stands up erect, his pain becomes quite problematic. Leaning forward lessens pain and discomfort. 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 He is limited in his ability to work and be productive because of his pain. He has undergone epidural steroid injection in the past and had no complications. He has noted some improvement, but still notes that he is unable to stand up erect for more than a few minutes before onset of his pain. We discussed the benefits of opioid/pain medication use. Oftentimes ____ with spinal stenosis they take there. Medications prior to an activity or able to perform much better with less pain and discomfort. We have given him this option and he feels that the use of Excedrin is what he would choose to use at this juncture. He has had no complications from the procedure. Rates his pain as a 4-5/10. Did have a family friend who underwent radiofrequency lesioning of his back. Was wondering whether or not that might be helpful. We explained the ramifications and the reasons for that procedure. The patient is not a real candidate at this juncture for that treatment. ALLERGIES: No known drug allergies. CURRENT MEDICATIONS: Excedrin tablets q. 6 hours, Celebrex 200 mg, vitamin D3 2000 units, diltiazem 180 mg for heart rhythm, fish oil, garlic supplementation 500 mg, Osteo Bi-Flex capsules b.i.d., Zestril 20 mg, Lutein 20 mg, Saw palmetto 400 mg t.i.d., Maxzide 25 mg, vitamin E 400 mg, CoQ10 250 mg, pumpkin seed oil, Eliquis. PAIN CLINIC ASSESSMENT/PQRS: 1. The patient has osteoarthritic changes in his low back. He has pain in his knees and has had a knee replacement, bilateral carpal tunnel surgeries. The patient is not being treated for rheumatoid arthritis. 2. Height 6 feet 3 inches, weight 247 pounds, BMI is 31.2. 3. Vital signs: Blood pressure 142/68, heart rate 53, respiratory rate 16, room air saturation is 93%. Temperature is 98.2. 4. Fall risk. The patient has not fallen in the last 3 months. 5. Blood thinner. The patient is not taking his Eliquis. He has stopped [facility] [address] [place] [address] PAIN MANAGEMENT CONSULTATION Name: VILMA LEE Tony Room: [facility]#: [id number] Admission: 10/09/18 Attend Phys: Washington Guthrie MD Discharge: Date of : 38 Report #: [id number] taking it in an effort to undergo the procedure today. 6. Hypertension. The patient is being treated for hypertension. 7. Opioids greater than 6 weeks. The patient is not on an opioid regimen. 8. Risk assessment tool, low for opioid use. 9. Functional assessment tool. 10. Recreational drug use. The patient denies use of recreational drugs. 11. Tobacco: The patient denies use of tobacco. 12. Alcohol: The patient denies use of alcoholic beverages. PHYSICAL EXAMINATION: GENERAL: The patient is a well-developed, well-nourished white male. Appears 78 years old. He is alert and oriented x 3. His affect is appropriate. Speech is fluent. HEENT: Normocephalic, atraumatic. Extraocular eye muscles intact. Sclerae not icteric. Mucous membranes are moist. NECK: Without adenopathy or JVD. CHEST: Clear to auscultation. HEART: Regular rate. ABDOMEN: Without rhonchi or rales. EXTREMITIES: Upper extremity muscle strength judged to be 5-/5 for the major muscle groups in the upper extremity. Gravel Wheeler strength 5/5. ABDOMEN: Without protuberance. Bowel sounds present. The patient without significant scoliosis, kyphosis or lordosis. The patient does tend to stand leaning forward. States that this improves his pain and has less discomfort. IMPRESSION: 1. Low back pain with pain radiating down into the L3-L4 distribution. 2. History of spinal stenosis at the L2-L3 area with a 10 mm stenosis. 3. Degenerative joint disease involving the knees. 4. Atrial fibrillation history. 5. Hypertension. 6. Evidence of spinal stenosis L3-L4, and L2-L3. RECOMMENDATIONS: We discussed treatment options with the patient. Risks and benefits of an epidural steroid injection were discussed. Possible complications of the procedure were reviewed. They include but are not limited to infection, worsening of pain, no improvement in pain, nerve trauma and the patient elects to proceed. PROCEDURE NOTE: The patient was taken to the procedure area. He was then assisted in getting on the examination table. His back has been sterilely prepped with a Betadine solution. A 0.25% bupivacaine was infiltrated at the L2-L3 interspace. This area had been sterilely prepped. A 17-gauge Tuohy with loss of resistance technique was used to gain access to the epidural space. There was no CSF, heme or paresthesia. Total of 80 mg Depo-Medrol, 40 mg triamcinolone was injected. The patient tolerated [place] [address] PAIN MANAGEMENT CONSULTATION Name: VILMA LEE Room: [facility]#: [id number] Admission: 10/09/18 Attend Phys: Washington Guthrie MD Discharge: Date of : 38 Report #: [id number] of 24 seconds fluoroscopy time was used. The patient's pain decreased to 2 at the time of discharge. He will follow up in the future as needed. We have discussed the options with the patient. 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 He would like to work with his sons. We explained to the patient that some patients can find better efficacy with small amount of hydrocodone medications. Taken one-half hour before activity. The patients are able to do much more with less pain and discomfort. The patient at this juncture, feels that Excedrin is the enough pain medication at this juncture. We have left the door open for use of hydrocodone on a limited basis for the patient if he chooses to in the near future. We would like to thank you for letting us participate in his care. We hope he continues to improve. By: 1425 1809N. Conrado Guthrie MD /nt
== END ==
LOC: M.PC 04:57
DX: M54.16 Radiculopathy, lumbar region (principal); M48.061 Spinal stenosis, lumbar region without neurogenic claudication; G89.29 Other chronic pain; M17.0 Bilateral primary osteoarthritis of knee; I10 Essential (primary) hypertension; I48.91 Unspecified atrial fibrillation; Z79.01 Long term (current) use of anticoagulants; Z98.890 Other specified postprocedural states; Z79.899 Other long term (current) drug therapy; Z96.659 Presence of unspecified artificial knee joint

== ENCOUNTER → 2018-10-16 | Outpatient (CLI) | payer MEDICARE | LOC: M.ULTRA 07:53 | DX: G45.9 Transient cerebral ischemic attack, unspecified (principal); E78.5 Hyperlipidemia, unspecified ==

== ENCOUNTER → 2018-12-04 | Outpatient (CLI) | payer MEDICARE ==
--- NOTE | ~2018-12-04 | PAINCON ---
[address] [address] PAIN MANAGEMENT CONSULTATION Name: ROSAVILMA Tony [facility] [id number] Admission: 12/04/18 Attend Phys: Washington Guthrie MD Discharge: Date of : 38 Report #: [id number] THIS REPORT FOR: //name// CC: Tami Guthrie DATE OF SERVICE: 12/04/2018 CHIEF COMPLAINT: Low back pain with pain that radiates down into the right and left. HISTORY: The patient is an 78-year-old gentleman who has been followed and treated in the pain clinic because of lumbar radiculopathy. The patient has history of spinal stenosis. It involves the L3-L4 area. He has undergone epidural steroid injections with some benefit. Still has pain, which is quite problematic. Pain is not very bad when he is sitting, becomes quite problematic after standing for sometime. Certain movements while standing can exacerbate his pain. He rates his pain as a 3/10 at this juncture. 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 He has returned to the pain clinic today with the hopes of undergoing an epidural steroid injection and finding benefit from the procedure. ALLERGIES: No known drug allergies. CURRENT MEDICATIONS: Excedrin tablets q. 6 hours p.r.n., Celebrex 200 mg, vitamin D3 2000 units, Diltiazem 180 mg for heart rhythm, fish oil, garlic supplementation 500 mg, Osteo Bi-Flex capsules b.i.d., Zestril 20 mg, lutein 20 mg, saw palmetto 400 mg t.i.d., Maxzide 25 mg, vitamin E 400 mg, CoQ10 250 mg, pumpkin seed oil, Eliquis. PAIN CLINIC ASSESSMENT/PQRS: 1. The patient has osteoarthritic changes in his back. He has had a knee replacement, has had bilateral carpal tunnel sac surgeries. He is not being treated for rheumatoid arthritis. 2. Height 6 feet 3 inches, weight 250 pounds, BMI is 31. 3. VITAL SIGNS: Blood pressure 149/70, heart rate 55, respiratory rate 18, room air saturation 95%, temperature is 98.3. 4. Pain intensity 08/03. 5. Fall history: The patient has not fallen in the last 3 months. 6. Blood thinner. The patient is not on a blood thinning medication. He does take Eliquis, but stopped it. 7. Hypertension. The patient is being treated for hypertension. 8. Opioids greater than 6 weeks. The patient is not on an opioid regimen. 9. Risk assessment tool, low for opioid use. 10. Functional assessment tool. 11. Recreational drug use. The patient [place] [address] PAIN MANAGEMENT CONSULTATION Name: VILMA LEE Room: [facility]#: [id number] Admission: 12/04/18 Attend Phys: Washington Guthrie MD Discharge: Date of : 38 Report #: [id number] 12. Tobacco: The patient denies use of tobacco. 13. Alcohol: The patient denies use of alcoholic beverage. PHYSICAL EXAMINATION: GENERAL: The patient is a well-developed, well-nourished white male. Appears his stated age. He is alert and oriented x 3. His affect is appropriate. Speech is fluent. HEENT: Normocephalic, atraumatic. Extraocular eye muscles intact. Sclerae nonicteric. Mucous membranes are moist. NECK: Without adenopathy or JVD. ABDOMEN: Nontender, bowel sounds present. EXTREMITIES: Upper extremity muscle strength is judged to be 5/5 for the major muscle groups in the upper extremity. Human Resources Receptionist strength 5/5. Lower extremity muscles judged to be 5/-5. The patient's strength is limited by the symptomatology of spinal stenosis with aching and increased discomfort in the lower portion of his back down into his legs. States his pain is less problematic leans forward. IMPRESSION: 1. Low back pain with pain radiating down into the L3-L4 distribution. 2. History of spinal stenosis at the L2-L3 area with 10 mm stenosis. 3. Degenerative joint disease involving the knees. 4. Atrial fibrillation. 5. Hypertension. 6. Evidence of spinal stenosis at L3-L4 and L2-L3. RECOMMENDATIONS: We discussed treatment options with the patient. Risks and benefits of the epidural steroid injection were discussed. They include but are not limited to infection, worsening pain, no improvement in pain, bleeding and the patient elects to proceed. PROCEDURE NOTE: The patient was taken to the procedure area. He was then assisted in getting on the examination table. His back was sterilely prepped with a Betadine solution. A 17-gauge Tuohy with loss of resistance technique was used to gain access to the epidural space at the L3-L4 area. There was no CSF, heme or paresthesia. Total of 80 mg Depo-Medrol, 40 mg triamcinolone and 2 mL of 0.25% bupivacaine was injected. The patient's pain decreased to 2 at the time of discharge. He will follow up in the future as needed. He will resume his Eliquis. We would like to thank you for letting us participate in his care. We hope he continues to improve. By: 1616 2349N. Conrado Guthrie MD /antony
== END | disposition home or self-care (01) ==
LOC: M.PC 11-18 08:50
DX: M54.16 Radiculopathy, lumbar region (principal); G89.29 Other chronic pain; M48.061 Spinal stenosis, lumbar region without neurogenic claudication; M17.0 Bilateral primary osteoarthritis of knee; I10 Essential (primary) hypertension; I48.91 Unspecified atrial fibrillation; Z79.01 Long term (current) use of anticoagulants; Z79.899 Other long term (current) drug therapy; Z98.890 Other specified postprocedural states

== ENCOUNTER → 2019-03-19 | Outpatient (CLI) | payer MEDICARE ==
[~2019-03-19] MED LIST changes: +ASPIR 8181 M1 PO
--- NOTE | 2019-04-06 13:25 | PAINCON ---
[address] [address] PAIN MANAGEMENT CONSULTATION Name: VILMA LEE [facility] [id number] Admission: 03/19/19 Attend Phys: Washington Guthrie MD Discharge: Date of : 38 Report #: [id number] THIS REPORT FOR: //name// CC: Tami Guthrie DATE OF SERVICE: 03/19/2019 CHIEF COMPLAINT: "Low back pain that is really bad when I stand for a long time." HISTORY: The patient is an 78-year-old gentleman who has been seen in the pain clinic because of spinal stenosis with lumbar radiculopathy. The patient has spinal stenosis at the L2-L3 and L3-L4 areas. He has undergone epidural steroid injections and found some benefit from these. He returns today indicating that his low back pain has recurred. He feels that he received about 50% improvement from the pain for a number of months. 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 He notes that his pain rises to the level of 5/10 with standing and with certain activities. He has returned to the pain clinic today with hopes of undergoing an epidural steroid injection. He has stopped taking the Eliquis 3 days ago. ALLERGIES: No known drug allergies. CURRENT MEDICATIONS: Excedrin tablets one p.o. q.6 hours p.r.n., Celebrex 200 mg, vitamin D3 2000 units, diltiazem 180 mg for heart rhythm, fish oil, garlic supplementation 500 mg, Osteo Bi-Flex capsules b.i.d., Zestril 20 mg, Lutein 20 mg, saw palmetto 400 mg t.i.d., Maxzide 25 mg, vitamin E 400 mg, CoQ10 250 mg, pumpkin seed oil, Eliquis. PAIN CLINIC ASSESSMENT/PQRS: 1. The patient has osteoarthritic changes in his low back. He had a knee replacement. He has had bilateral carpal tunnel surgeries. The patient is not being treated for rheumatoid arthritis. 2. Height 6 feet 3 inches, weight 254 pounds, BMI is 31. 3. Vital Signs: Blood pressure 117/54, heart rate 54, respiratory rate 16, room air saturation 95%, temperature 98.1. 4. Pain intensity is 0 while sitting, 5-10 while standing. 5. Fall history: The patient has not fallen in the last 3 months. 6. Blood thinner. The patient is on a blood thinning medication Eliquis, stopped it with the desire to undergo an epidural injection. 7. Hypertension. The patient is being treated for hypertension. 8. Opioids greater than 6 weeks. The patient is not on a regular opioid regimen. 9. Risk assessment tool, low [place] [address] PAIN MANAGEMENT CONSULTATION Name: VILMA LEE Room: [facility]#: [id number] Admission: 03/19/19 Attend Phys: Washington Guthrie MD Discharge: Date of : 38 Report #: [id number] 10. Functional assessment tool. 11. Recreational drug use. The patient denies use of recreational drugs. 12. Tobacco: The patient denies use of tobacco. 13. Alcohol. The patient denies use of alcohol. PHYSICAL EXAMINATION: GENERAL: The patient is a well-developed, well-nourished 78-year-old white male. Appears his stated age. He is alert and oriented x 3. His affect is appropriate. Speech is fluent. HEENT: Normocephalic, atraumatic. Extraocular eye muscles intact. Sclerae nonicteric. Mucous membranes are moist. NECK: Without adenopathy or JVD. ABDOMEN: Nontender. EXTREMITIES: Upper extremity muscle strength judged to be 5-/5 for the major muscle groups in the upper extremity. Sales Engagement Manager strength is 5/5. Lower extremity muscle strength judged to be 5-/5. The patient's strength is limited. Prolonged standing causes worsening of pain and discomfort and the pain level rises to about 5, decreasing his ability to exert himself and the patient must sit down and after about 5 minutes notes an improvement in his pain and resolution of the discomfort. The patient has a forward leaning gait. IMPRESSION: 1. Low back pain with pain radiating down the L3-L4 dermatomal distribution. 2. History of spinal stenosis at the L2-L3 area with 10-mm stenosis. 3. Degenerative joint disease involving the knees. 4. Atrial fibrillation history. 5. Hypertension. 6. Evidence of spinal stenosis at L3-L4 and L2-L3. 7. Carotid artery scan right side 50% occlusion. RECOMMENDATIONS: We discussed treatment option with the patient. Risks and benefits of epidural steroid injections were discussed. They include but are not limited to infection, worsening of pain, no improvement in pain, bleeding, headache, no improvement. The patient elects to proceed. PROCEDURE NOTE: The patient was taken to the procedure area. He was then assisted in getting on the examination table. Betadine solution was used in the lumbar area. Fluoroscopy using anterior, posterior as well as lateral viewing was implemented. After appropriate localization of the L3-L4 area, 0.25% bupivacaine was injected. A skin wheal was placed. A 17-gauge Tuohy with loss of resistance technique at the L3-L4 area was then undertaken. Aspiration was negative. A total of 80 mg of Depo-Medrol, 40 mg triamcinolone, and 2 mL of 0.25% bupivacaine were injected. Total of 23 seconds [place] [address] PAIN MANAGEMENT CONSULTATION Name: VILMA LEE Room: [facility]#: [id number] Admission: 03/19/19 Attend Phys: Washington Guthrie MD Discharge: Date of : 38 Report #: [id number] We would like to thank you for letting us participate in his care. We hope he continues to improve. <ELECTRONICALLY SIGNED> By: Washington Guthrie MD 04/06/19 1325 1325 1414N. Conrado Guthrie MD /nt
== END | disposition home or self-care (01) ==
LOC: M.PC 01:04
DX: M54.16 Radiculopathy, lumbar region (principal); G89.29 Other chronic pain; M48.061 Spinal stenosis, lumbar region without neurogenic claudication; I10 Essential (primary) hypertension; M17.0 Bilateral primary osteoarthritis of knee; I48.91 Unspecified atrial fibrillation; F41.9 Anxiety disorder, unspecified; Z98.890 Other specified postprocedural states; Z79.01 Long term (current) use of anticoagulants; Z79.899 Other long term (current) drug therapy

== ENCOUNTER 2019-04-11 21:42 | Emergency (ER) | payer MEDICARE ==
[~2019-04-11] VITALS: Ht 188 cm; Wt 110.7 kg
[~2019-04-11 21:42] MED LIST changes: -ASPIR 8181 M1 PO
[2019-04-11] MEDS ORDERED: ASPIR 8181 M1 PO (21:56)
[2019-04-11 22:16] LABS: ABSOLUTE EOSINOPHILS 0.3 thou/uL (0.0-0.7); ABSOLUTE LYMPHOCYTES 3.7 thou/uL (0.8-5.3); ABSOLUTE MONOCYTES 0.6 thou/uL (0.0-1.2); ABSOLUTE NEUTROPHILS 3.7 thou/uL (1.6-8.1); BASOPHILS 0.5 %; EOSINOPHILS 3.2 %; HEMATOCRIT 34.9 % (42.0-52.0); HEMOGLOBIN 11.9 gm/dL (14.0-18.0); LYMPHOCYTES 44.8 %; MCHC 34.2 g/dL (28.0-37.0); MCV 93.6 fL (80.0-100.0); MONOCYTES 6.9 %; MPV 8.4 fl. (7.2-11.1); NUCLEATED RBCS 0 /100WBC; PLATELET COUNT* 184 thou/uL (150-400); POLYS 44.6 %; RBC 3.72 mil/uL (4.50-6.00); RDW-CV 13.3 % (10.5-14.5); WBC 8.3 thou/uL (4.0-11.0)
[2019-04-11 22:24] LABS: CALCIUM 8.6 mg/dL (8.5-10.1); CREATININE 1.6 mg/dL (0.6-1.3); POTASSIUM 3.4 mmol/L (3.5-5.1)
[2019-04-11 22:27] LABS: PROTIME 9.9 Seconds (9.20-11.50)
[2019-04-11 22:34] LABS: ALBUMIN 3.1 g/dL (3.4-5.0); TOTAL BILIRUBIN 0.3 mg/dL (<0.1-1.0); TOTAL PROTEIN 6.3 g/dL (6.4-8.2)
[2019-04-11 23:06] LABS: URINE BILIRUBIN NEGATIVE (Negative); URINE BLOOD NEGATIVE (Negative); URINE CLARITY CLEAR; URINE COLOR YELLOW; URINE GLUCOSE-RANDOM NEGATIVE (Negative); URINE KETONES NEGATIVE (Negative); URINE LEUKOCYTES-REFLEX NEGATIVE (Negative); URINE NITRITE-REFLEX NEGATIVE (Negative); URINE PROTEIN NEGATIVE (Negative); URINE SPECIFIC GRAVITY 1.015 (1.005-1.030); URINE UROBILINOGEN 0.2 E.U./dl (0.2-1.0)
[2019-04-12 01:00] VITALS: BP 103/57
--- NOTE | 2019-04-12 11:24 | EKG ---
[place] [address] ELECTROCARDIOGRAM REPORT Name: VILMA LEE MARKELL Room: [facility]#: [id number] Admission: 04/11/19 Attend Phys: Discharge: 04/12/19 Date of : 38 Report #: [id number] THIS REPORT FOR: //name// [facility] ED Test Date: 2019-04-11 Test Time: 21:52:43 Pat Name: VILMA LEE Department: Room: Gender: M Pedorthist: MARU : 1940 Requested By: Alda Gary Order Number: [id number] MD: Norman Ortiz Measurements Intervals [place] Rate: 102 P: 67 SC: 176 QRS: -29 QRSD: 93 T: 94 QT: 374 QTc: 488 Interpretive Statements Sinus tachycardia LVH with secondary repolarization abnormality Anterior Q waves, possibly due to LVH Baseline wander in lead(s) V1,V2 Compared to ECG 06/02/2018 05:48:04 Left ventricular hypertrophy now present Early repolarization now present Ventricular premature complex(es) no longer present Electronically Signed On 04-12-2019 11:24:25 MEDICAL MALPRACTICE [facility] by Norman Ortiz [email or web address] <ELECTRONICALLY SIGNED> By: Norman Ortiz MD, FACC 04/12/19 1124 51 51 Norman Ortiz MD, FAC /EPI
== END 2019-04-12 01:02 | disposition home or self-care (01) ==
LOC: M.ERS 21:42
PROVIDERS: Emergency Medicine
DX: R00.0 Tachycardia, unspecified (principal); I10 Essential (primary) hypertension; I48.91 Unspecified atrial fibrillation; M19.90 Unspecified osteoarthritis, unspecified site

== ENCOUNTER → 2019-05-26 | Outpatient (CLI) | payer MEDICARE ==
[~2019-05-26] MED LIST changes: +ASPIR 8181 M1 PO
--- NOTE | ~2019-05-26 | PAINCON ---
[address] [address] PAIN MANAGEMENT CONSULTATION Name: ROSAVILMA GUILLAUME Room: [facility]#: [id number] Admission: 05/26/19 Attend Phys: Washington Guthrie MD Discharge: Date of : 38 Report #: [id number] THIS REPORT FOR: //name// CC: Tami Guthrie DATE OF SERVICE: 05/26/2019 CHIEF COMPLAINT: "Low back pain has returned." HISTORY: The patient is an 78-year-old gentleman who has been followed in the pain clinic because of lumbar radiculopathy. He has undergone epidural steroid injections. Does suffer from spinal stenosis. Prolonged standing is quite problematic. 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 He has stopped taking his Eliquis with the hopes of undergoing an epidural steroid injection. He has found that these have been helpful in the past. Does note some increased pain in his left knee. He had surgery about 5 years ago. He has had no complication from injections in the past. Notes that with the colder weather walking and standing for prolonged periods of time can be problematic. ALLERGIES: No known drug allergies. CURRENT MEDICATIONS: Excedrin tablets one p.o. q.4-6 hours p.r.n., Celebrex 200 mg, vitamin D3 2000 units, diltiazem 180 mg for heart rhythm, fish oil, garlic supplementation 500 mg, Osteo Bi-Flex capsules b.i.d., Zestril 20 mg, lutein 20 mg, saw palmetto 400 mg t.i.d., Maxzide 25 mg, vitamin E 400 international units, CoQ10 250 mg, pumpkin seed oil, Eliquis. PAIN CLINIC ASSESSMENT/PQRS: 1. The patient has some pain and discomfort in the lower portion of his back. Also, has knee pain, has undergone knee replacement in the past. Has bilateral carpal tunnel surgeries. The patient has not been treated for rheumatoid arthritis. 2. Height 6 feet 3 inches, weight 251 pounds, BMI is 31. 3. Vital signs: Blood pressure is 150/80, heart rate 69, respiratory rate 16, room air saturation is 95%, temperature 97.5. 4. Pain intensity 3-4/10. 5. Fall history: The patient has not fallen in the last 3 months. 6. Blood thinner: The patient has stopped taking his Eliquis with the hopes of undergoing an epidural injection today. 7. Hypertension. The patient is being treated for hypertension. 8. Opioid is greater than 6 weeks. The patient is not receiving opioids on a regular basis. 9. Risk assessment tool: [place] [address] PAIN MANAGEMENT CONSULTATION Name: VILMA LEE Room: [facility]#: [id number] Admission: 05/26/19 Attend Phys: Washington Guthrie MD Discharge: Date of : 38 Report #: [id number] 10. Functional assessment tool. 11. Recreational drug use: The patient denies. 12. Tobacco: The patient denies. 13. Alcohol: The patient denies. PHYSICAL EXAMINATION: GENERAL: The patient is a well-developed, well-nourished 78-year-old gentleman. Appears his stated age. He is alert and oriented x 3. His affect is appropriate. Speech is fluent. HEENT: Normocephalic, atraumatic. Extraocular eye muscles intact. Sclerae nonicteric. Mucous membranes are moist. NECK: Without adenopathy or JVD. ABDOMEN: Nontender. HEART: The patient without evidence of atrial fibrillation. EXTREMITIES: Upper extremity muscle strength judged to be 5-/5 for the major muscle groups in the upper extremity. Laundry Machine Mechanic strength 5/5. The patient has pain and discomfort in the lower portion of his back with pain that radiates down into his leg in the L3-L4 dermatomal distribution. IMPRESSION: 1. Low back pain with pain radiating down in the L3-L4 dermatomal distribution. 2. History of spinal stenosis at the L2-L3 area with 10 mm area of spinal stenosis. 3. Degenerative joint disease involving the knees. 4. Atrial fibrillation history. 5. Hypertension. 6. Evidence of spinal stenosis at L3-L4 and at L2-L3. 7. Carotid artery scan right side 50% occlusion. RECOMMENDATIONS: We discussed treatment options with the patient. Risks and benefits of an epidural injection were discussed. They include but are not limited to infection, worsening pain, no improvement in pain, bleeding, nerve damage and the patient elects to proceed. PROCEDURE NOTE: The patient was taken to the procedure area. He was then assisted in getting on the examination table. His back was sterilely prepped with a Betadine solution. A pillow was placed under his abdomen to bolster and improve positioning. Fluoroscopy using anterior, posterior as well as a lateral approach were undertaken. A 0.25% bupivacaine was infiltrated at the L3-L4 interspace. After this area was anesthetized, a 17-gauge Tuohy with loss of resistance technique was used to gain access to the epidural space. There was no CSF, heme or paresthesia. Total of 80 mg Depo-Medrol, 40 mg triamcinolone and 2 mL of 0.25% bupivacaine was injected. The patient tolerated the procedure well. There were no complications. He will follow up in [place] [address] PAIN MANAGEMENT CONSULTATION Name: VILMA LEE Room: [facility].#: [id number] Admission: 05/26/19 Attend Phys: Washington Guthrie MD Discharge: Date of : 36 Report #: [id number] Total of 14 seconds fluoroscopy time was used. The patient will resume use of his Eliquis. By: 1726 0346N. Conrado Guthrie MD /nt
== END | disposition home or self-care (01) ==
LOC: M.PC 04:24
DX: M54.16 Radiculopathy, lumbar region (principal); G89.29 Other chronic pain; M17.0 Bilateral primary osteoarthritis of knee; I48.91 Unspecified atrial fibrillation; I10 Essential (primary) hypertension; M48.061 Spinal stenosis, lumbar region without neurogenic claudication; Z98.890 Other specified postprocedural states; Z79.899 Other long term (current) drug therapy; Z79.01 Long term (current) use of anticoagulants; Z96.659 Presence of unspecified artificial knee joint

== ENCOUNTER → 2019-07-23 | Outpatient (CLI) | payer MEDICARE ==
[~2019-07-23] MED LIST changes: +? CHOLESTEROL MED; +LIPITOR 20 MG T20 M1 PO
== END | disposition home or self-care (01) ==
LOC: M.PC 11:00
DX: M54.16 Radiculopathy, lumbar region (principal); G89.29 Other chronic pain; I10 Essential (primary) hypertension; I48.91 Unspecified atrial fibrillation; Z98.890 Other specified postprocedural states; Z79.01 Long term (current) use of anticoagulants; Z79.899 Other long term (current) drug therapy

== ENCOUNTER 2019-07-31 00:52 | Inpatient (IN) | payer MEDICARE ==
[~2019-07-31] VITALS: Ht 190.5 cm; Wt 112.5 kg
[~2019-07-31 00:52] MED LIST changes: -? CHOLESTEROL MED; -LIPITOR 20 MG T20 M1 PO
[2019-07-31] MEDS ORDERED: ? CHOLESTEROL MED (01:01)
[2019-07-31 01:03] VITALS: BP 147/105
[2019-07-31 01:37] LABS: ABSOLUTE EOSINOPHILS 0.3 thou/uL (0.0-0.7); ABSOLUTE LYMPHOCYTES 6.3 thou/uL (0.8-5.3); ABSOLUTE MONOCYTES 1.1 thou/uL (0.0-1.2); BASOPHILS 0.3 %; HEMATOCRIT 39.3 % (42.0-52.0); HEMOGLOBIN 13.2 gm/dL (14.0-18.0); LYMPHOCYTES 42.8 %; MCHC 33.7 g/dL (28.0-37.0); MCV 92.2 fL (80.0-100.0); MONOCYTES 7.2 %; MPV 8.5 fl. (7.2-11.1); NUCLEATED RBCS 0 /100WBC; PLATELET COUNT* 241 thou/uL (150-400); POLYS 47.7 %; RBC 4.26 mil/uL (4.50-6.00); RDW-CV 13.5 % (10.5-14.5); WBC 14.7 thou/uL (4.0-11.0)
[2019-07-31 01:47] LABS: CALCIUM 9.5 mg/dL (8.5-10.1); CREATININE 1.3 mg/dL (0.6-1.3)
[2019-07-31 02:00] LABS: ALBUMIN 3.5 g/dL (3.4-5.0); TOTAL BILIRUBIN 0.7 mg/dL (<0.1-1.0); TOTAL PROTEIN 6.6 g/dL (6.4-8.2)
[2019-07-31 06:20] VITALS: BP 124/70
[2019-07-31 09:36] VITALS: BP 117/70
--- NOTE | 2019-07-31 10:18 | EKG ---
[place] [address] ELECTROCARDIOGRAM REPORT Name: SHERYLSherifVILMA GUILLAUME Room: [place] [address] ADM IN .R.#: [id number] Admission: 07/31/19 Attend Phys: Linden Agrawal Discharge: Date of : 36 Date of Service: 07/31/19 0056 Report #: [id number] THIS REPORT FOR: //name// [facility] ED Test Date: 2019-07-31 Test Time: 00:56:14 Pat Name: VILMA LEE Department: Room: [facility] Gender: M Gymnastic Teacher: SRIRAM : 1940 Requested By: Jim Collins Order Number: [id number] MD: Norman Ortiz Measurements Intervals [place] Rate: 129 P: -44 CO: 68 QRS: -31 QRSD: 91 T: 109 QT: 326 QTc: 478 Interpretive Statements atrial tachycardia LVH with secondary repolarization abnormality Anterior infarct, old Compared to ECG 04/11/2019 21:52:43 rate has increased Electronically Signed On 07-31-2019 10:17:17 TRACK COACH by Norman Ortiz [email or web address] <ELECTRONICALLY SIGNED> By: Norman Ortiz MD, [facility] 07/31/19 1017 0056 0056 Norman Ortiz MD, [facility] /EPI
[2019-07-31 14:35] VITALS: BP 110/71
[2019-07-31 18:48] VITALS: BP 109/79
[2019-07-31 20:10] VITALS: BP 121/70
[2019-07-31] MEDS ORDERED: LIPITOR 20 MG T20 M1 PO (20:37)
[2019-07-31 21:29] LABS: URINE BILIRUBIN NEGATIVE (Negative); URINE BLOOD NEGATIVE (Negative); URINE CLARITY CLEAR; URINE COLOR YELLOW; URINE GLUCOSE-RANDOM NEGATIVE (Negative); URINE KETONES NEGATIVE (Negative); URINE LEUKOCYTES NEGATIVE (Negative); URINE NITRITE NEGATIVE (Negative); URINE PROTEIN NEGATIVE (Negative); URINE UROBILINOGEN 0.2 E.U./dl (0.2-1.0)
[2019-08-01 00:36] VITALS: BP 115/71
[2019-08-01 04:32] VITALS: BP 111/57
[2019-08-01 05:36] LABS: CHOLESTEROL 111 mg/dL (<200); HDL CHOLESTEROL 42 mg/dL (>40); LDL CHOLESTEROL 50 mg/dL (<100); TC:HDL 2.6 Ratio (Not establshd); TRIGLYCERIDE 98 mg/dL (<150); VLDL 20 mg/dL (<40)
[2019-08-01 05:43] LABS: SERUM ASSESSMENT CLEAR
[2019-08-01 08:00] VITALS: BP 123/62; BP 123/78
[2019-08-01 08:24] VITALS: BP 111/57
[2019-08-01 10:24] VITALS: BP 111/57
[2019-08-01 10:38] VITALS: BP 111/57
--- NOTE | 2019-08-01 13:40 | CON ---
[address] [address] CONSULTATION Name: ROSAVILMA GUILLAUME Room: [address] IN M.R.#: [id number] Admission: 07/31/19 Attend Phys: Marcial Townsend Discharge: 08/01/19 Date of : 36 Report #: [id number] THIS REPORT FOR: //name// cc: Tami Ochoa Catherine FNP ~ THIS REPORT FOR: //name// CC: Tami Agrawal DATE OF SERVICE: 07/31/2019 CARDIOLOGY CONSULTATION HISTORY OF PRESENT ILLNESS: The patient is an 79-year-old white male who I was asked to see in the Emergency Room today after he had an episode of atrial fibrillation. The patient has a long history of paroxysmal atrial fibrillation. He has been followed by my partner, Dr. Jaxson Peralta. He apparently has been cardioverted several times. His last cardioversion was in 05/2018 when he underwent a MACARIO and he was then cardioverted. He has been on sotalol. He last saw Dr. Peralta in 02/2019 when he was in sinus rhythm. He is not very active at this time and uses a cane. He denied any recent fever, chills, chest pain, shortness of breath, medical noncompliance. Last night, he was at home when he felt his heart beating irregular. He denies shortness of breath, lightheadedness. He came to the Emergency Room and he was noted to be in atrial fibrillation. Cardiology consultation was requested. He has had no recent bleeding problems. PAST MEDICAL HISTORY: Otherwise significant for appendectomy, knee replacement, hypertension, hyperlipidemia, sleep apnea. He cannot tolerate CPAP. He was told in the past he has high cholesterol. CURRENT MEDICATIONS: Include Eliquis, sotalol 80 mg twice a day, Maxzide. ALLERGIES: He has no known drug allergies. FAMILY HISTORY: His mother had a heart attack. SOCIAL HISTORY: He is . He and his live in [place]. He is retired at this time. No smoking. No alcohol abuse. REVIEW OF SYSTEMS: He is overweight, being 6 feet 3 inches, weighing 253 pounds. He has no history of stroke, asthma, peptic ulcer disease, liver disease, kidney disease, cancer. He has spinal stenosis, had an epidural in the past[place] [address] CONSULTATION Name: VILMA LEE Room: [address]#: [id number] Admission: 07/31/19 Attend Phys: Marcial Townsend Discharge: 08/01/19 Date of : 36 Report #: [id number] PHYSICAL EXAMINATION: GENERAL: Revealed a large, elderly male, lying in bed. He appeared in no distress. VITAL SIGNS: He had a blood pressure of 120/70, pulse is 130. HEENT: He was anicteric. Conjunctivae pink. Mucous membranes moist. NECK: Veins difficult to assess due to obesity. No carotid bruits. CHEST: Clear to auscultation. CARDIOVASCULAR: Irregular rhythm. No significant murmur. ABDOMEN: Soft. EXTREMITIES: Had no edema. SKIN: Warm and dry. NEUROLOGIC: Nonfocal. DIAGNOSTIC DATA: His ECG on admission showed a narrow complex tachycardia at 130 beats per minute consistent with atrial tachycardia. There were left ventricular hypertrophy repolarization changes. Currently, he appears to be in atrial fibrillation, controlled response. His workup last night: Sodium 142, BUN 29, creatinine 1.3. His liver function studies were normal. Troponin 0.16. His BNP 2129. A year ago, his TSH was 2.0. White blood cell count 14.7, hematocrit 39.3. He had a portable chest x-ray in the Emergency Room last night that showed normal heart size, tortuous aorta, clear lung bruno. Carotid Doppler study a year ago showed a 60-70% stenosis. His previous cardiac workup included his transesophageal echocardiogram a year ago when he underwent cardioversion that showed ejection fraction 60%, no shunt, mild mitral regurgitation. The patient actually had a previous nuclear stress test in 2013 that showed no evidence of ischemia. This was performed using Lexiscan. There was apical thinning noted. Ejection fraction was 65%. IMPRESSION AND RECOMMENDATIONS: 1. Paroxysmal atrial fibrillation. I would consider increasing sotalol to 160 mg twice a day. I would continue Eliquis. If he fails to convert, I would consider a repeat cardioversion. 2. Hypertension. The patient is on a beta clair and diuretic. 3. Sleep apnea. The patient could not tolerate CPAP. 4. Chronic back pain. The patient received epidural in the past. 5. Obesity. Recommend diet and exercise. <ELECTRONICALLY SIGNED> By: Norman Ortiz MD, FACC 08/01/19 1340 1039 [id number] Ortiz MD, FACC /nt
== END 2019-08-01 12:23 | disposition home or self-care (01) | DRG 309 ==
LOC: M.ERS 00:52 → M.TBA-ER 02:12 → M.2W 19:56
PROVIDERS: Emergency Medicine Emergency Medical Services; Internal Medicine; Internal Medicine Cardiovascular Disease; ADMIT Internal Medicine
DX: I48.0 Paroxysmal atrial fibrillation (principal); R65.10 Systemic inflammatory response syndrome (SIRS) of non-infectious origin without acute organ dysfunction; D68.69 Other thrombophilia; Z96.659 Presence of unspecified artificial knee joint; I10 Essential (primary) hypertension; E78.5 Hyperlipidemia, unspecified; M54.9 Dorsalgia, unspecified; G89.29 Other chronic pain; E66.9 Obesity, unspecified; M19.90 Unspecified osteoarthritis, unspecified site; R79.89 Other specified abnormal findings of blood chemistry; G47.33 Obstructive sleep apnea (adult) (pediatric); I25.10 Atherosclerotic heart disease of native coronary artery without angina pectoris; Z68.31 Body mass index [BMI] 31.0-31.9, adult; Z87.891 Personal history of nicotine dependence; Z79.01 Long term (current) use of anticoagulants; Z90.89 Acquired absence of other organs; Z90.49 Acquired absence of other specified parts of digestive tract; Z79.82 Long term (current) use of aspirin; Z79.899 Other long term (current) drug therapy; Z91.14 Patient's other noncompliance with medication regimen

== ENCOUNTER → 2019-10-20 | Outpatient (CLI) | payer MEDICARE ==
[~2019-10-20] MED LIST changes: +? CHOLESTEROL MED; +ASA81BEC PO; +LIPITOR 20 MG T20 M1 PO; +LIPITOR10 MG PO
== END | disposition home or self-care (01) ==
LOC: M.PC 10-13 08:30
DX: M54.16 Radiculopathy, lumbar region (principal); I13.10 Hypertensive heart and chronic kidney disease without heart failure, with stage 1 through stage 4 chronic kidney disease, or unspecified chronic kidney disease; N18.3 Chronic kidney disease, stage 3 (moderate); M19.90 Unspecified osteoarthritis, unspecified site; I48.0 Paroxysmal atrial fibrillation; G47.30 Sleep apnea, unspecified; E78.00 Pure hypercholesterolemia, unspecified; Z98.890 Other specified postprocedural states; Z79.899 Other long term (current) drug therapy; Z90.49 Acquired absence of other specified parts of digestive tract; Z98.0 Intestinal bypass and anastomosis status

== ENCOUNTER → 2019-12-24 | Outpatient (CLI) | payer MEDICARE ==
--- NOTE | 2019-12-30 12:56 | PAINCON ---
[address] [address] PAIN MANAGEMENT CONSULTATION Name: VILMA LEE Room: [facility].#: [id number] Admission: 12/24/19 Attend Phys: Washington Guthrie MD Discharge: Date of : 36 Report #: [id number] THIS REPORT FOR: //name// cc: Tami Ochoa Catherine FNP ~ THIS REPORT FOR: //name// CC: Tami Guthrie DATE OF SERVICE: 12/24/2019 CHIEF COMPLAINT: Return of back pain that is radiating down into the leg. HISTORY: The patient is an 79-year-old gentleman who has been followed in the pain clinic because of lumbar radiculopathy. He suffers from pain and discomfort in the low back area that radiates down into the anterior portion of his thigh. He has undergone epidural steroid injections in the past and found them beneficial. He has been busy. He has noticed an increase in pain and discomfort. He rates it as a 3-4/10. At this juncture, he would like to proceed with another epidural steroid injection. He finds that Excedrin and Tylenol are helpful. He has a history of atrial fibrillation and takes Eliquis. He has forgot to stop his Eliquis medication. He would like to undergo an epidural steroid injection as soon as possible. ALLERGIES: No known drug allergies. CURRENT MEDICATIONS: 1. Excedrin one p.o. q. 4-6 hours. 2. Celebrex 200 mg. 3. Vitamin D 2000 units. 4. Diltiazem 180 mg for heart rhythm. 5. Fish oil. 6. Garlic supplementation 500 mg. 7. Osteo Bi-Flex capsule b.i.d. 8. Zanaflex. 9. Zestril 20 mg. 10. Lutein 20 mg. 11. Saw palmetto 400 mg b.i.d. 12. Maxzide 25 mg. 13. Vitamin E ____ mg. 14. CoQ10 250 mg. 15. Pumpkin seed. 16. Eliquis. PAIN CLINIC ASSESSMENT AND PQRS: [place] [address] PAIN MANAGEMENT CONSULTATION Name: VILMA LEE Room: [facility]#: [id number] Admission: 12/24/19 Attend Phys: Washington Guthrie MD Discharge: Date of : 36 Report #: [id number] 1. The patient has some pain and discomfort in lower portion of his back. Also, he has pain down into his knee. He has undergone knee replacements in the past. He has undergone bilateral carpal tunnel surgeries. 2. The patient is not being treated for rheumatoid arthritis. 3. Height 6 feet 3 inches, weight 251 pounds, BMI is 31. 4. Vital Signs: Blood pressure 147/87, heart rate 68, respiratory rate 16, room air saturation 96%, temperature 98.0. 5. Pain intensity score 3-4/10. 6. Fall History: The patient has not fallen in the last 3 months. 7. Blood Thinner: The patient is on Eliquis. 8. Hypertension: The patient is being treated for hypertension. 9. Opioids greater than 6 weeks: The patient receives medication from his primary. 10. Risk assessment tool: Low for opioid use. 11. Functional assessment tool: Reviewed. 12. Recreational drug use: The patient denies. 13. Tobacco: The patient denies. 14. Alcohol. The patient denies use of alcoholic beverages. PHYSICAL EXAMINATION: GENERAL: The patient is a well-developed, well-nourished white male. Appears his stated age. He is alert and oriented x 3. His affect is appropriate. Speech is fluent. HEENT: Normocephalic, atraumatic. Extraocular eye muscles intact. Sclerae nonicteric. Mucous membranes are moist. The patient is wearing a mask. LUNGS: Generally clear. MUSCULOSKELETAL: Upper extremity muscle strength judged to be 5/5 for the major muscle groups in the upper extremity. SKIN: The patient has a number of bruises on his forearms. He has a new area about the size of a dime on the right forearm. He states that he bumped into the wall and noticed increased fragility of his skin. EXTREMITIES: Lower extremity muscle strength 5-/5 for the major muscle groups in the lower extremity. The patient has pain and discomfort in the L3-L4 dermatomal distribution down his leg. IMPRESSION: 1. Lumbar radicular pain in the low back area, radiating down into the L3-L4 interspace. 2. History of spinal stenosis at L3-L4 with a 10 mm space at this level. 3. Degenerative joint disease involving the knees. 4. Atrial fibrillation history. 5. Hypertension. 6. Evidence of spinal stenosis at L3-L4 and L2-L3. 7. 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 8. Elevated prostate. [address] [address] PAIN MANAGEMENT CONSULTATION Name: VILMA LEE Room: [facility]#: [id number] Admission: 12/24/19 Attend Phys: Washington Guthrie MD Discharge: Date of : 38 Report #: [id number] RECOMMENDATIONS: We discussed treatment options with the patient. We explained to the patient that we could proceed with an epidural steroid injection. Unfortunately, he forgot to stop taking his Eliquis. He will return to the Pain Clinic after he has stopped the Eliquis medication. We will then proceed with an injection. We explained the problems with anticoagulation and the possibility of an injection into the spinal area while he was on Eliquis could be quite problematic. Should he note pressure developed in the lower extremities with weakness or bowel and bladder dysfunction, he would then have to immediately undergo surgery to decompress this area. He states that he forgot and would return in a few days to undergo an epidural steroid injection. We would like to thank you for letting us participate in his care. We hope he continues to improve. He will stop his Eliquis and return for an epidural injection. <ELECTRONICALLY SIGNED> By: Washington Guthrie MD 12/30/19 1256 1437 1954N. Conrado Guthrie MD /nt
== END ==
LOC: M.PC 03:54
PROVIDERS: ATTEND Anesthesiology Pain Medicine
DX: M48.061 Spinal stenosis, lumbar region without neurogenic claudication (principal); M54.40 Lumbago with sciatica, unspecified side; I25.10 Atherosclerotic heart disease of native coronary artery without angina pectoris; M17.0 Bilateral primary osteoarthritis of knee; I48.91 Unspecified atrial fibrillation; N40.0 Benign prostatic hyperplasia without lower urinary tract symptoms; Z79.899 Other long term (current) drug therapy

== ENCOUNTER → 2019-12-31 | Outpatient (CLI) | payer MEDICARE | END | disposition home or self-care (01) | LOC: M.PC 02:02 | PROVIDERS: ATTEND Anesthesiology Pain Medicine | DX: M54.16 Radiculopathy, lumbar region (principal); G89.29 Other chronic pain; I10 Essential (primary) hypertension; I48.91 Unspecified atrial fibrillation; E78.5 Hyperlipidemia, unspecified; G47.30 Sleep apnea, unspecified; Z98.890 Other specified postprocedural states; Z79.899 Other long term (current) drug therapy; Z79.01 Long term (current) use of anticoagulants ==

== ENCOUNTER → 2020-02-25 | Outpatient (CLI) | payer MEDICARE ==
--- NOTE | 2020-03-08 14:22 | PAINCON ---
[address] [address] PAIN MANAGEMENT CONSULTATION Name: VILMA LEE Room: [facility].#: [id number] Admission: 02/25/20 Attend Phys: Washington Guthrie MD Discharge: Date of : 36 Report #: [id number] THIS REPORT FOR: //name// cc: Maria Del Carmen Cheung Stefany RNP ~ THIS REPORT FOR: //name// CC: Washington Cheung DATE OF SERVICE: 02/25/2020 CHIEF COMPLAINT: Back pain HISTORY: The patient is an 79-year-old gentleman, who has been followed in the Pain Clinic. As you may recall, he suffers from spinal stenosis. MRI shows narrowing in the L3-L4 area. The patient has undergone epidural steroid injections, these are beneficial. He has noticed recurrence of pain and discomfort and has sought improvement today by undergoing an epidural injection. He denies any new bowel or bladder dysfunction. He rates his pain as a 2-3/10. The longer he stands, the more problems he has. 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 ALLERGIES: No known drug allergies. CURRENT MEDICATIONS: Excedrin 1 p.o. q. 4-6 hours, Celebrex 200 mg, vitamin D 2000 units, diltiazem 180 mg for heart rhythm, fish oil, garlic supplementation 500 mg, Osteo Bi-Flex capsule b.i.d., Zanaflex, Zestril 20 mg, lutein 20 mg, saw palmetto b.i.d., Maxzide 25 mg, vitamin E, CoQ10 250 mg, pumpkin seed, Eliquis. PAIN CLINIC ASSESSMENT AND PQRS: 1. The patient does have some pain and discomfort in the lower portion of his back. He also has pain down to his knees. He has undergone knee replacement in the past. He has undergone bilateral carpal tunnel releases. 2. The patient is not being treated for rheumatoid arthritis. 3. Height 6 feet 3 inches, weight 246 pounds, BMI is 31. 4. Vital signs: Blood pressure 124/58, heart rate 56, respiratory rate 16, room air saturation 95%, temperature 98.3. 5. Pain intensity: 10 6. Fall history: The patient has not fallen in the last 3 months. 7. Blood thinner: The patient is not on a blood thinning medication. He is taking Eliquis, has not taken it today and has been off for a number of days with the desire to undergo an injection. 8. Hypertension: The patient is being treated for hypertension. 9. Opioids greater than 6 weeks: The patient receives medication [place] [address] PAIN MANAGEMENT CONSULTATION Name: VILMA LEE Room: [facility]#: [id number] Admission: 02/25/20 Attend Phys: Washington Guthrie MD Discharge: Date of : 38 Report #: [id number] 10. Risk assessment tool: Low for opioid use. 11. Functional assessment tool: Reviewed. 12. Recreational drug use: The patient denies. 13. Tobacco: The patient denies use of tobacco. 14. Alcohol: The patient denies use of alcoholic beverages. PHYSICAL EXAMINATION: GENERAL: The patient is a well-developed, well-nourished, white male. Appears his stated age. He is alert and oriented x 3. His affect is appropriate. Speech is fluent. HEENT: The patient is wearing a facial covering. The patient's extraocular eye muscles intact. Normocephalic. NECK: Without adenopathy or JVD. HEART: Regular rate. LUNGS: Clear. MUSCULOSKELETAL: Upper extremity muscle strength is judged to be 5-/5 for the major muscle groups in the upper extremity. The patient has some bruises on his forearm, he accounts them as trauma from bumping into saha and other objects. Lower extremity muscle strength is judged to be 5-/5 for the major muscle groups. The patient notes that his gait is slow. He notes that after walking for a prolonged period of time, his pain becomes more problematic in his back and he has to sit down and rest for a while. IMPRESSION: 1. Lumbar radiculopathy with pain and narrowing at the L3-L4 areas because of spinal stenosis. 2. Atrial fibrillation history. 3. Hypertension. 4. Evidence of spinal stenosis at L3-L4 and L2-L3. 5. Coronary artery disease. 6. Right-sided occlusion, 50%. 7. Elevated prostate. RECOMMENDATIONS: We discussed treatment options with the patient. Risks and benefits of an epidural steroid injection were again discussed. Possible complications of the procedure, which could include but are not limited to infection, worsening of pain, no improvement in pain, nerve damage, and the patient elects to proceed. The patient is aware that COVID-19 is problematic. The patient feels that he would like to proceed with the injection because of the severity of his pain. PROCEDURE NOTE: The patient was taken to the procedure area. He was then assisted in getting on the examination table. His back was sterilely prepped with betadine solution. 0.25% bupivacaine was infiltrated. 17-gauge Tuohy at the L3-L4 area was infiltrated. A 17-gauge Tuohy was then advanced. Fluoroscopy anterior and posterior corroborated the appropriate placement of [facility] [address] [place] [address] PAIN MANAGEMENT CONSULTATION Name: VILMA LEE Room: [facility].#: [id number] Admission: 02/25/20 Attend Phys: Washington Guthrie MD Discharge: Date of : 36 Report #: [id number] needle placement. Total of 80 mg Depo-Medrol, 40 mg triamcinolone, and 2 mL of 0.25% bupivacaine was injected. The patient tolerated the procedure well. He remained in the Pain Clinic for an appropriate amount of time. He will follow up in the future. We would like to thank you for letting us participate in his care. We hope he continues to improve. <ELECTRONICALLY SIGNED> By: Washington Guthrie MD 03/08/20 1422 1317 0027N. Conrado Guthrie MD /nt
== END | disposition home or self-care (01) ==
LOC: M.PC 08:42
PROVIDERS: ATTEND Anesthesiology Pain Medicine
DX: M54.16 Radiculopathy, lumbar region (principal); M48.061 Spinal stenosis, lumbar region without neurogenic claudication; G89.29 Other chronic pain; I10 Essential (primary) hypertension; I25.10 Atherosclerotic heart disease of native coronary artery without angina pectoris; N40.0 Benign prostatic hyperplasia without lower urinary tract symptoms; I48.91 Unspecified atrial fibrillation; Z98.890 Other specified postprocedural states; Z79.899 Other long term (current) drug therapy; Z79.01 Long term (current) use of anticoagulants

== ENCOUNTER → 2020-04-28 | Outpatient (CLI) | payer MEDICARE | END | disposition home or self-care (01) | LOC: M.PC 09:22 | PROVIDERS: ATTEND Anesthesiology Pain Medicine | DX: M54.16 Radiculopathy, lumbar region (principal); I10 Essential (primary) hypertension; I25.10 Atherosclerotic heart disease of native coronary artery without angina pectoris; I48.91 Unspecified atrial fibrillation; N40.0 Benign prostatic hyperplasia without lower urinary tract symptoms; M19.90 Unspecified osteoarthritis, unspecified site; Z98.890 Other specified postprocedural states; Z79.899 Other long term (current) drug therapy; Z79.01 Long term (current) use of anticoagulants ==

== ENCOUNTER → 2020-08-16 | Outpatient (CLI) | payer MEDICARE ==
[~2020-08-16] MED LIST changes: +MEDROLDOSEPACK PO
== END | disposition home or self-care (01) ==
LOC: M.PC 09:50
PROVIDERS: ATTEND Anesthesiology Pain Medicine
DX: M54.16 Radiculopathy, lumbar region (principal); G89.29 Other chronic pain; I10 Essential (primary) hypertension; I25.10 Atherosclerotic heart disease of native coronary artery without angina pectoris; I48.91 Unspecified atrial fibrillation; N40.0 Benign prostatic hyperplasia without lower urinary tract symptoms; M19.90 Unspecified osteoarthritis, unspecified site; Z98.890 Other specified postprocedural states; Z79.899 Other long term (current) drug therapy; Z96.651 Presence of right artificial knee joint; Z79.01 Long term (current) use of anticoagulants; Z98.0 Intestinal bypass and anastomosis status

== ENCOUNTER → 2020-12-22 | Outpatient (CLI) | payer MEDICARE | END | disposition home or self-care (01) | LOC: M.PC 09:32 | PROVIDERS: ATTEND Anesthesiology Pain Medicine | DX: M54.16 Radiculopathy, lumbar region (principal); M48.061 Spinal stenosis, lumbar region without neurogenic claudication; G89.29 Other chronic pain; I10 Essential (primary) hypertension; I25.10 Atherosclerotic heart disease of native coronary artery without angina pectoris; I48.91 Unspecified atrial fibrillation; N40.0 Benign prostatic hyperplasia without lower urinary tract symptoms; Z98.890 Other specified postprocedural states; Z79.899 Other long term (current) drug therapy; Z96.651 Presence of right artificial knee joint; Z98.0 Intestinal bypass and anastomosis status; Z87.891 Personal history of nicotine dependence ==

== ENCOUNTER → 2021-02-14 | Outpatient (CLI) | payer MEDICARE | LOC: M.CT 14:40 | PROVIDERS: ATTEND Nurse Practitioner Family | DX: M47.814 Spondylosis without myelopathy or radiculopathy, thoracic region (principal); M47.816 Spondylosis without myelopathy or radiculopathy, lumbar region; M41.86 Other forms of scoliosis, lumbar region; M25.78 Osteophyte, vertebrae; M48.061 Spinal stenosis, lumbar region without neurogenic claudication; M48.062 Spinal stenosis, lumbar region with neurogenic claudication ==

== ENCOUNTER → 2021-03-01 | Outpatient (CLI) | payer MEDICARE | LOC: M.ULTRA 09:31 | PROVIDERS: ATTEND Nurse Practitioner Family | DX: M79.604 Pain in right leg (principal) ==

== ENCOUNTER 2021-05-06 15:00 | Inpatient (IN) | payer MEDICARE ==
[~2021-05-06] VITALS: Ht 190.5 cm; Wt 113.4 kg
[2021-05-06 15:10] VITALS: BP 119/70
[2021-05-06 15:57] LABS: MPV 8.5 fl. (7.2-11.1); NUCLEATED RBCS 0 /100WBC
[2021-05-06 15:59] LABS: ABSOLUTE BASOPHILS 0.1 thou/uL (0.0-0.2); ABSOLUTE EOSINOPHILS 0.3 thou/uL (0.0-0.7); ABSOLUTE MONOCYTES 0.9 thou/uL (0.0-1.2); ABSOLUTE NEUTROPHILS 5.1 thou/uL (1.6-8.1); BASOPHILS 0.6 %; EOSINOPHILS 2.6 %; HEMATOCRIT 37.3 % (42.0-52.0); HEMOGLOBIN 12.5 gm/dL (14.0-18.0); LYMPHOCYTES 38.4 %; MCH 30.9 pg (26.0-34.0); MCHC 33.5 g/dL (28.0-37.0); MCV 92.4 fL (80.0-100.0); MONOCYTES 9.1 %; PLATELET COUNT* 187 thou/uL (150-400); POLYS 49.3 %; RBC 4.04 mil/uL (4.50-6.00); RDW-CV 13.3 % (10.5-14.5); WBC 10.3 thou/uL (4.0-11.0)
[2021-05-06 16:09] LABS: CALCIUM 8.5 mg/dL (8.5-10.1); CREATININE 1.4 mg/dL (0.6-1.3); POTASSIUM 3.7 mmol/L (3.5-5.1)
[2021-05-06 16:17] LABS: ALBUMIN 3.3 g/dL (3.4-5.0); MAGNESIUM 2.1 mg/dL (1.8-2.4); TOTAL BILIRUBIN 0.6 mg/dL (<0.1-1.0); TOTAL PROTEIN 6.4 g/dL (6.4-8.2)
[2021-05-06 20:34] VITALS: BP 110/60
[2021-05-06 22:18] VITALS: BP 110/60
[2021-05-06 22:30] VITALS: BP 120/66
[2021-05-07] VITALS: BP 127/76
[2021-05-07 04:00] VITALS: BP 116/65
[2021-05-07 08:00] VITALS: BP 102/67
--- NOTE | 2021-05-07 10:42 | EKG ---
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 : 1940 Requested By: Jim Collins Order Number: [id number] MD: Norman Ortiz Measurements Intervals [place] Rate: 111 P: UT: QRS: -38 QRSD: 93 T: 95 QT: 381 QTc: 518 Interpretive Statements Atrial fibrillation Ventricular premature complex Anterior infarct, old Prolonged QT interval Compared to ECG 07/31/2019 00:56:14 Ventricular premature complex(es) now present Prolonged QT interval now present Ectopic atrial tachycardia, unifocal no longer present Myocardial infarct finding still present Electronically Signed On 05-07-2021 10:42:28 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 05/07/21 1042 1517 1517 Norman Ortiz MD, [facility] /EPI
[2021-05-07 12:00] VITALS: BP 106/67
[2021-05-07] MEDS ORDERED: ELIQUIS5 MG PO (12:42)
[2021-05-07] MEDS ORDERED: SORINE 80 MG TA80 M1 PO (12:42)
[2021-05-07 14:25] VITALS: BP 106/67
== END 2021-05-07 15:00 | disposition home or self-care (01) | DRG 308 ==
LOC: M.ERS 15:00 → M.TBA-ER 17:47 → M.2W 22:30
PROVIDERS: Emergency Medicine Emergency Medical Services; ADMIT Internal Medicine; ATTEND Internal Medicine
DX: I48.0 Paroxysmal atrial fibrillation (principal); R65.11 Systemic inflammatory response syndrome (SIRS) of non-infectious origin with acute organ dysfunction; N17.0 Acute kidney failure with tubular necrosis; Z20.822 Contact with and (suspected) exposure to COVID-19; M19.90 Unspecified osteoarthritis, unspecified site; E78.5 Hyperlipidemia, unspecified; N18.9 Chronic kidney disease, unspecified; M48.00 Spinal stenosis, site unspecified; I12.9 Hypertensive chronic kidney disease with stage 1 through stage 4 chronic kidney disease, or unspecified chronic kidney disease

== ENCOUNTER → 2021-05-11 | Outpatient (CLI) | payer MEDICARE ==
[2021-05-11] VITALS (14 sets, daily range): BP systolic 82–117; BP diastolic 46–63
[2021-05-11 08:53] LABS: HEMATOCRIT 39.9 % (42.0-52.0); HEMOGLOBIN 13.2 gm/dL (14.0-18.0); MCH 30.6 pg (26.0-34.0); MCHC 33.1 g/dL (28.0-37.0); MCV 92.4 fL (80.0-100.0); RBC 4.32 mil/uL (4.50-6.00); WBC 10.9 thou/uL (4.0-11.0)
[2021-05-11 09:16] LABS: ALBUMIN 3.4 g/dL (3.4-5.0); CALCIUM 8.5 mg/dL (8.5-10.1); CREATININE 1.6 mg/dL (0.6-1.3); POTASSIUM 3.7 mmol/L (3.5-5.1); TOTAL BILIRUBIN 0.6 mg/dL (<0.1-1.0); TOTAL PROTEIN 6.5 g/dL (6.4-8.2)
--- NOTE | 2021-05-18 14:13 | CARD ---
[address] [address] CARDIAC CATH REPORT Name: VILMA LEE Room: [facility]#: [id number] Admission: 05/11/21 Attend Phys: Jaxson Peralta MD Discharge: Date of : 36 Report #: [id number] THIS REPORT FOR: cc: Maria Del Carmen Cheung Stefany RNP [place], Michael J. MD [facility] ~ cc: Gabriela DATE OF SERVICE: 05/11/2021 CARDIAC PROCEDURE PROCEDURE: Discontinue cardioversion. INDICATION: Persistent atrial fibrillation. DESCRIPTION OF PROCEDURE: After informed consent was obtained, the patient was brought to the cardiac holding area. The patient was given intravenous Versed and fentanyl for conscious sedation. Once the patient was adequately sedated, he was cardioverted from atrial fibrillation to normal sinus rhythm. The patient tolerated the procedure well without complication. IMPRESSION: 1. Persistent atrial fibrillation. 2. Successful direct current cardioversion to normal sinus rhythm. <ELECTRONICALLY SIGNED> By: Jaxson Peralta MD, FACC 05/18/21 1413 0915 [id number] Peral[facility] MD, FACC /nt
== END | disposition home or self-care (01) ==
LOC: M.CL 08:15
PROVIDERS: ATTEND Internal Medicine Cardiovascular Disease
DX: I48.19 Other persistent atrial fibrillation (principal); I10 Essential (primary) hypertension; M19.90 Unspecified osteoarthritis, unspecified site; Z98.890 Other specified postprocedural states; Z96.651 Presence of right artificial knee joint; Z79.899 Other long term (current) drug therapy; Z79.01 Long term (current) use of anticoagulants